=== PATIENT | female | born 1950 | race Caucasian/White ===

== ENCOUNTER 2022-06-12 07:47 | Emergency (ER) | payer MEDICARE ==
[2022-06-12] MEDS ORDERED: Sodium Chloride 0.9% 1000 ML 1,000 ML IV STA ×2 (08:05→09:52)
[2022-06-12] MEDS ORDERED: Reglan 10 MG/2 ML IV ONE (08:05)
[2022-06-12] MEDS ORDERED: Sodium Chloride 0.9% 1000 ML 1,000 ML ONE ×2 (08:09→10:36)
[2022-06-12] MEDS ORDERED: Reglan 10 MG/2 ML ONE (08:09)
--- NOTE | 2022-06-12 08:09 | ERPHSYRPT ---
- History of Present Illness Time Seen by Provider: 06/12/22 07:55 Source: patient Exam Limitations: no limitations Patient Subjective Stated Complaint: Pt states "My gabapentin increased and I woke up vomiting today and it will not stop." Triage Nursing Assessment: PT presnted alert and oriented X 3, skin pale, diaphoretic, warm. PT able to speak in clear full sentences pt dry heaving and vomiting. Physician History: 72 years old female with history of trigeminal neuralgia with recent increase in the dose of Neurontin presented in the ER with sudden onset nausea vomiting almost an hour ago. Patient reports multiple episodes of nonprojectile, nonbilious vomiting without hematemesis. Currently she is dry heaving and have received a dose of Zofran with Benadryl by EMS. Complaining of some abdominal discomfort but no definitive pain. Denies any chest pain palpitations or shortness of breath. No fever or chills reported. Denies any sick contact. Timing/Duration: hour(s) (1), constant, sudden, worse Severity: moderate, severe Modifying Factors: Improves With: nothing Associated Symptoms: nausea, vomiting, weakness, No abdominal pain, No shortness of breath, No heartburn, No cough, No chest pain, No headaches, No loss of appetite, No malaise, No rash, No syncope Allergies/Adverse Reactions: No Known Drug Allergies Allergy (Verified 06/12/22 08:07) Home Medications: Oxcarbazepine 300 mg [Trileptal 300 MG Tablet] 300 mg PO DAILY 06/12/22 [History] Hx Tetanus, Diphtheria Vaccination/Date Given: Yes Hx Influenza Vaccination/Date Given: No Hx Pneumococcal Vaccination/Date Given: No Immunizations Up to Date: Yes Travel Risk - International Travel Have you traveled outside of the country in past 3 weeks: No - Coronavirus Screening Are you exhibiting any of the following symptoms?: Yes Symptoms: Vomiting/Diarrhea - Vaccine Status Have you recieved a Covid-19 vaccination: 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 - Vaccination Dates Date of 2cond Vaccination (if applicable): 2020 - Review of Systems Constitutional: Fatigue, Weakness Eyes: No Symptoms Ears, Nose, & Throat: No Symptoms Respiratory: No Symptoms Cardiac: No Symptoms Abdominal/Gastrointestinal: Nausea, Vomiting Genitourinary Symptoms: No Symptoms Musculoskeletal: No Symptoms Neurological: No Symptoms Psychological: No Symptoms Endocrine: No Symptoms Hematologic/Lymphatic: No Symptoms Immunological/Allergic: No Symptoms - Past Medical History Pertinent Past Medical History: Yes Other Medical History: facial tremors - Past Surgical History Past Surgical History: No - Social History Smoking Status: Former smoker Exposure to second hand smoke: No Drug Use: none Patient Lives Alone: No - Nursing Vital Signs Nursing Vital Signs: Initial Vital Signs Temperature 97.8 F 06/12/22 07:48 Pulse Rate 79 06/12/22 07:48 Respiratory Rate 20 06/12/22 07:48 Blood Pressure 190/90 06/12/22 07:48 O2 Sat by Pulse Oximetry 97 06/12/22 07:48 Pain Scale Pain Intensity 0 - Physical Exam General Appearance: no apparent distress, alert Eye Exam: PERRL/EOMI, eyes nml inspection Ears, Nose, Throat Exam: normal ENT inspection, pharynx normal Neck Exam: normal inspection, non-tender, supple, full range of motion Respiratory Exam: normal breath sounds, lungs clear Cardiovascular Exam: regular rate/rhythm, normal heart sounds Gastrointestinal/Abdomen Exam: soft, normal bowel sounds, No tenderness, No guarding Back Exam: normal inspection, normal range of motion Extremity Exam: normal inspection, normal range of motion Neurologic Exam: alert, oriented x 3, cooperative Skin Exam: normal color SpO2 Interpretation: normal SpO2: 97 O2 Delivery: Room Air Ordered Tests: Active Orders 24 hr Category Date Time Status EKG-ER Only STAT Care 06/12/22 08:05 Active IV Insertion STAT Care 06/12/22 08:05 Active NPO (ED) STAT Care 06/12/22 08:05 Active ABDOMEN AND PELVIS W/0 CONTRAS [CT] Stat Exams 06/12/22 08:05 Completed CBC W DIFF Stat Lab 06/12/22 08:20 Completed CMP Stat Lab 06/12/22 08:20 Completed LIPASE Stat Lab 06/12/22 08:20 Completed Lactic Acid Stat Lab 06/12/22 08:20 Completed Lactic Acid Stat Lab 06/12/22 10:27 Completed TROPONIN Q3H Lab 06/12/22 08:20 Completed TROPONIN Q3H Lab 06/12/22 12:00 Completed TROPONIN Q3H Lab 06/12/22 14:15 Ordered TROPONIN Q3H Lab 06/12/22 17:15 Ordered TROPONIN Q3H Lab 06/12/22 20:15 Ordered UA W/RFX CULTURE Stat Lab 06/12/22 08:40 Completed Medication Summary Discontinued Medications Generic Name Dose Route Start Last Admin Trade Name Deya PRN Reason Stop Dose Admin Sodium Chloride 1,000 mls @ 999 mls/hr 06/12/22 08:05 06/12/22 09:14 Sodium Chloride 0.9% 1000 Ml IV 06/12/22 09:05 Infused .Q1H1M STA Infusion Sodium Chloride Confirm 06/12/22 08:09 Sodium Chloride 0.9% 1000 Ml Administered 06/12/22 08:10 Dose 1,000 mls @ ud .ROUTE .STK-MED ONE Sodium Chloride 1,000 mls @ 999 mls/hr 06/12/22 09:52 06/12/22 11:43 Sodium Chloride 0.9% 1000 Ml IV 06/12/22 10:52 Infused .Q1H1M STA Infusion Sodium Chloride Confirm 06/12/22 10:36 Sodium Chloride 0.9% 1000 Ml Administered 06/12/22 10:37 Dose 1,000 mls @ ud .ROUTE .STK-MED ONE Metoclopramide HCl 10 mg 06/12/22 08:05 06/12/22 08:10 Metoclopramide Hcl 10 Mg/2 Ml Vial IV 06/12/22 08:06 10 mg STAT ONE Administration Metoclopramide HCl Confirm 06/12/22 08:09 Metoclopramide Hcl 10 Mg/2 Ml Vial Administered 06/12/22 08:10 Dose 10 mg .ROUTE .STK-MED ONE Lab/Rad Data: Laboratory Result Diagrams 06/12/22 08:20 06/12/22 08:20 Laboratory Results 06/12/22 06/12/22 06/12/22 Range/Units 12:00 10:27 09:22 WBC (4.0-10.5) x10^3/uL RBC (4.1-5.4) x10^6/uL Hgb (12.0-16.0) g/dL Hct (35-47) % MCV (78-100) fL MCH (26-32) pg MCHC (32-36) g/dL RDW (11.5-14.0) % Plt Count (150-450) x10^3/uL MPV (7.5-11.0) fL Gran % (36.0-66.0) % Immature Gran % (Auto) (0.00-0.4) % Nucleat RBC Rel Count (0.00-0.1) % Eos # (Auto) (0-0.5) x10^3/uL Immature Gran # (Auto) (0.00-0.03) x10^3u/L Absolute Lymphs (auto) (1.0-4.6) x10^3/uL Absolute Monos (auto) (0.0-1.3) x10^3/uL Absolute Nucleated RBC (0.00-0.01) x10^3u/L Lymphocytes % (24.0-44.0) % Monocytes % (0.0-12.0) % Eosinophils % (0.00-5.0) % Basophils % (0.0-0.4) % Absolute Granulocytes (1.4-6.9) x10^3/uL Basophils # (0-0.4) x10^3/uL Sodium (137-145) mmol/L Potassium (3.5-5.1) mmol/L Chloride (98-107) mmol/L Carbon Dioxide (22-30) mmol/L Anion Gap (5-15) MEQ/L BUN (7-17) mg/dL Creatinine (0.52-1.04) mg/dL Estimated GFR ML/MIN Glucose (74-106) mg/dL Lactic Acid 1.1 (0.4-2.0) Calcium (8.4-10.2) mg/dL Total Bilirubin (0.2-1.3) mg/dL AST (14-36) U/L ALT (0-35) U/L Alkaline Phosphatase (38-126) U/L Troponin I 0.018 (0.000-0.034) ng/mL Serum Total Protein (6.3-8.2) g/dL Albumin (3.5-5.0) g/dL Lipase (23-300) U/L Urinalys Dipstick Clnc Urine Color (YELLOW) Urine Appearance (CLEAR) Urine pH (5-6) Ur Specific [place] (1.005-1.025) POC Urine Protein Conf (Negative) Urine Ketones (NEGATIVE) Urine Nitrite (NEGATIVE) Urine Bilirubin (NEGATIVE) Urine Urobilinogen (0-1) mg/dL Urine Leukocytes (NEGATIVE) Urine WBC (Auto) (0-5) /HPF Urine RBC (Auto) (0-2) /HPF U Epithel Cells (Auto) (FEW) /HPF Urine Bacteria (Auto) (NEGATIVE) /HPF Urine RBC (0-5) Narendra/ul Unidentified Crystals (NEGATIVE) /HPF Urine Mucus (Auto) (NEGATIVE) /HPF Ur Culture Indicated? Urine Glucose (NEGATIVE) mg/dL Influenza Type A Ag NEGATIVE (NEGATIVE) Influenza Type B Ag NEGATIVE (NEGATIVE) RSV (PCR) NEGATIVE (Negative) SARS-CoV-2 (PCR) NEGATIVE (NEGATIVE) 06/12/22 06/12/22 06/12/22 Range/Units 08:40 08:20 08:20 WBC (4.0-10.5) x10^3/uL RBC (4.1-5.4) x10^6/uL Hgb (12.0-16.0) g/dL Hct (35-47) % MCV (78-100) fL MCH (26-32) pg MCHC (32-36) g/dL RDW (11.5-14.0) % Plt Count (150-450) x10^3/uL MPV (7.5-11.0) fL Gran % (36.0-66.0) % Immature Gran % (Auto) (0.00-0.4) % Nucleat RBC Rel Count (0.00-0.1) % Eos # (Auto) (0-0.5) x10^3/uL Immature Gran # (Auto) (0.00-0.03) x10^3u/L Absolute Lymphs (auto) (1.0-4.6) x10^3/uL Absolute Monos (auto) (0.0-1.3) x10^3/uL Absolute Nucleated RBC (0.00-0.01) x10^3u/L Lymphocytes % (24.0-44.0) % Monocytes % (0.0-12.0) % Eosinophils % (0.00-5.0) % Basophils % (0.0-0.4) % Absolute Granulocytes (1.4-6.9) x10^3/uL Basophils # (0-0.4) x10^3/uL Sodium 143 (137-145) mmol/L Potassium 4.0 (3.5-5.1) mmol/L Chloride 106 (98-107) mmol/L Carbon Dioxide 27 (22-30) mmol/L Anion Gap 14.0 (5-15) MEQ/L BUN 20 H (7-17) mg/dL Creatinine 0.57 (0.52-1.04) mg/dL Estimated GFR > 60.0 ML/MIN Glucose 168 H (74-106) mg/dL Lactic Acid (0.4-2.0) Calcium 9.3 (8.4-10.2) mg/dL Total Bilirubin 0.50 (0.2-1.3) mg/dL AST 25 (14-36) U/L ALT 17 (0-35) U/L Alkaline Phosphatase 87 (38-126) U/L Troponin I < 0.012 (0.000-0.034) ng/mL Serum Total Protein 6.5 (6.3-8.2) g/dL Albumin 4.0 (3.5-5.0) g/dL Lipase 85 (23-300) U/L Urinalys Dipstick Clnc MAIN LAB Urine Color YELLOW (YELLOW) Urine Appearance CLEAR (CLEAR) Urine pH 7.0 (5-6) Ur Specific [place] 1.025 (1.005-1.025) POC Urine Protein Conf NEGATIVE (Negative) Urine Ketones SMALL-15 (NEGATIVE) Urine Nitrite NEGATIVE (NEGATIVE) Urine Bilirubin NEGATIVE (NEGATIVE) Urine Urobilinogen 0.2 (0-1) mg/dL Urine Leukocytes TRACE (NEGATIVE) Urine WBC (Auto) 3-5 (0-5) /HPF Urine RBC (Auto) 0-2 (0-2) /HPF U Epithel Cells (Auto) NONE (FEW) /HPF Urine Bacteria (Auto) NONE (NEGATIVE) /HPF Urine RBC NEGATIVE (0-5) Narendra/ul Unidentified Crystals 2-5 (NEGATIVE) /HPF Urine Mucus (Auto) SLIGHT (NEGATIVE) /HPF Ur Culture Indicated? NO Urine Glucose 100 (NEGATIVE) mg/dL Influenza Type A Ag (NEGATIVE) Influenza Type B Ag (NEGATIVE) RSV (PCR) (Negative) SARS-CoV-2 (PCR) (NEGATIVE) 06/12/22 06/12/22 Range/Units 08:20 08:20 WBC 9.3 (4.0-10.5) x10^3/uL RBC 4.55 (4.1-5.4) x10^6/uL Hgb 14.1 (12.0-16.0) g/dL Hct 41.6 (35-47) % MCV 91.4 (78-100) fL MCH 31.0 (26-32) pg MCHC 33.9 (32-36) g/dL RDW 11.9 (11.5-14.0) % Plt Count 230 (150-450) x10^3/uL MPV 9.9 (7.5-11.0) fL Gran % 70.4 H (36.0-66.0) % Immature Gran % (Auto) 0.3 (0.00-0.4) % Nucleat RBC Rel Count 0.0 (0.00-0.1) % Eos # (Auto) 0.30 (0-0.5) x10^3/uL Immature Gran # (Auto) 0.03 (0.00-0.03) x10^3u/L Absolute Lymphs (auto) 1.61 (1.0-4.6) x10^3/uL Absolute Monos (auto) 0.74 (0.0-1.3) x10^3/uL Absolute Nucleated RBC 0.00 (0.00-0.01) x10^3u/L Lymphocytes % 17.3 L (24.0-44.0) % Monocytes % 7.9 (0.0-12.0) % Eosinophils % 3.2 (0.00-5.0) % Basophils % 0.9 (0.0-0.4) % Absolute Granulocytes 6.57 (1.4-6.9) x10^3/uL Basophils # 0.08 (0-0.4) x10^3/uL Sodium (137-145) mmol/L Potassium (3.5-5.1) mmol/L Chloride (98-107) mmol/L Carbon Dioxide (22-30) mmol/L Anion Gap (5-15) MEQ/L BUN (7-17) mg/dL Creatinine (0.52-1.04) mg/dL Estimated GFR ML/MIN Glucose (74-106) mg/dL Lactic Acid 4.1 H (0.4-2.0) Calcium (8.4-10.2) mg/dL Total Bilirubin (0.2-1.3) mg/dL AST (14-36) U/L ALT (0-35) U/L Alkaline Phosphatase (38-126) U/L Troponin I (0.000-0.034) ng/mL Serum Total Protein (6.3-8.2) g/dL Albumin (3.5-5.0) g/dL Lipase (23-300) U/L Urinalys Dipstick Clnc Urine Color (YELLOW) Urine Appearance (CLEAR) Urine pH (5-6) Ur Specific [place] (1.005-1.025) POC Urine Protein Conf (Negative) Urine Ketones (NEGATIVE) Urine Nitrite (NEGATIVE) Urine Bilirubin (NEGATIVE) Urine Urobilinogen (0-1) mg/dL Urine Leukocytes (NEGATIVE) Urine WBC (Auto) (0-5) /HPF Urine RBC (Auto) (0-2) /HPF U Epithel Cells (Auto) (FEW) /HPF Urine Bacteria (Auto) (NEGATIVE) /HPF Urine RBC (0-5) Narendra/ul Unidentified Crystals (NEGATIVE) /HPF Urine Mucus (Auto) (NEGATIVE) /HPF Ur Culture Indicated? Urine Glucose (NEGATIVE) mg/dL Influenza Type A Ag (NEGATIVE) Influenza Type B Ag (NEGATIVE) RSV (PCR) (Negative) SARS-CoV-2 (PCR) (NEGATIVE) - Progress Progress: improved Progress Note: 06/12/22 12:40 Is given symptomatic treatment, on reevaluation she is feeling better. No nausea or vomiting on reevaluation. No peritoneal signs on repeated evaluation. She had a white count of 13, grossly unremarkable chemistries, elevated lactate of 4.1 without any obvious focus of infection. CT abdomen pelvis neg ative for any acute finding, CT also did not reveal constipation, recommended stool softener. Repeat lactate after fluids is 1.1 which I believe is secondary to dehydration the lactate was elevated We will give her Zofran to go home, increase hydration and outpatient follow-up discussed signs symptoms of worsening needing return to ER which she seems understanding Counseled pt/family regarding: lab results, diagnosis, need for follow-up, rad results - Departure Departure Disposition: Home Clinical Impression: Nausea & vomiting, Dehydration, Constipation Condition: Stable Critical Care Time: No Referrals: Eva Herman [NON-STAFF PHY W/O PRIVILEGES] - Follow up/PCP as directed (1-2 days for reevaluation) Instructions: Nausea and Vomiting, Adult (DC) Additional Instructions: Drink plenty of fluids to keep yourself well-hydrated. Take Zofran as needed for nausea vomiting take MiraLAX/stool softener regularly Follow-up with your primary care for reevaluation. Return to ER for intractable nausea vomiting/abdominal pain/fever chills etc. Prescriptions: Ondansetron ODT 4 MG [Zofran Odt 4 mg] 1 ea PO QIDPRN PRN #7 tablet PRN Reason: n/v
[2022-06-12 08:32] LABS: Absolute Neutrophil Ct (ANC) 6.57 x10^3/uL (1.4-6.9); Basophil (Absolute #) 0.08 x10^3/uL (0-0.4); Eosinophil % 3.2 % (0.00-5.0); Hematocrit 41.6 % (35-47); Hemoglobin 14.1 g/dL (12.0-16.0); Lymphocyte (Absolute #) 1.61 x10^3/uL (1.0-4.6); Lymphocytes % 17.3 % (24.0-44.0); Mean Cell Volume 91.4 fL (78-100); Mean Corpuscular Hgb Concent. 33.9 g/dL (32-36); Mean Platelet Volume 9.9 fL (7.5-11.0); Monocyte (Absolute #) 0.74 x10^3/uL (0.0-1.3); Monocytes % 7.9 % (0.0-12.0); Neutrophil % 70.4 % (36.0-66.0); Platelet Count 230 x10^3/uL (150-450); Red Blood Count 4.55 x10^6/uL (4.1-5.4); Red Cell Distribution Width 11.9 % (11.5-14.0); White Blood Count 9.3 x10^3/uL (4.0-10.5)
[2022-06-12 08:53] LABS: ALKALINE PHOSPHATASE 87 U/L (38-126); BLOOD UREA NITROGEN 20 mg/dL (7-17); CHLORIDE 106 mmol/L (98-107); Calcium 9.3 mg/dL (8.4-10.2); Carbon Dioxide 27 mmol/L (22-30); Creatinine 1 0.57 mg/dL (0.52-1.04); EST GLOMERULAR FILTRATION RATE > 60.0 ML/MIN; Glucose 168 mg/dL (74-106); LIPASE 85 U/L (23-300); SGOT/AST 25 U/L (14-36); SGPT/ALT 17 U/L (0-35); SODIUM 143 mmol/L (137-145); Total Protein 6.5 g/dL (6.3-8.2)
--- NOTE | 2022-06-12 09:11 | XRAY ---
Indication: Vomiting. Multiple contiguous axial images obtained through the abdomen and pelvis without contrast. Comparison: None Lung bases demonstrate mild dependent atelectasis. No infiltrate or effusion. Heart not enlarged. Small hiatal hernia. Noncontrasted stomach and bowel loops appear nonobstructed with normal appendix. There is mild/moderate diffuse scattered colonic fecal debris greatest in the ascending and transverse colon. 2.4 cm right mid renal cyst. No free fluid/air. Remaining liver, gallbladder, pancreas, spleen, adrenal glands, kidneys, ureters, bladder, and aorta are unremarkable for noncontrast exam. Mild scattered aortic calcifications without AAA. Osseous structures intact with mild lower lumbar degenerative changes. No ventral or inguinal hernias. Impression: 1. Small hiatal hernia, diffuse fecal stasis, right renal cyst, arteriosclerotic disease, and lumbar degenerative spondylosis. 2. Remaining CT abdomen/pelvis without contrast exam is negative.
[2022-06-12 09:16] LABS: Mucus SLIGHT /HPF (NEGATIVE); RBC 0-2 /HPF (0-2)
[2022-06-12 09:17] LABS: Appearance CLEAR (CLEAR); Bilirubin NEGATIVE (NEGATIVE); Glucose 100 mg/dL (NEGATIVE); Ketones SMALL-15 (NEGATIVE); Specific Gravity 1.025 (1.005-1.025)
[2022-06-12 09:18] LABS: Dipstick done @ ? MAIN LAB; Nitrite NEGATIVE (NEGATIVE); Protein,Urine Dip NEGATIVE (Negative); RBC NEGATIVE Ery/ul (0-5); Urobilinogen 0.2 mg/dL (0-1)
[2022-06-12 09:19] LABS: Urine Cultured Indicated? NO
[2022-06-12 10:01] LABS: INFLUENZA A NEGATIVE (NEGATIVE); INFLUENZA B NEGATIVE (NEGATIVE); RESPIRATORY SYNCTIAL VIRUS NEGATIVE (Negative)
[2022-06-12 10:02] LABS: SARS-CoV-2 Xpert Express NEGATIVE (NEGATIVE)
[2022-06-12 12:13] VITALS: BP 144/93; PULSE 70
[2022-06-12 12:45] VITALS: O2SAT 97
== END 2022-06-12 13:10 | disposition home or self-care (01) ==
LOC: ED 07:47
DX: R11.2 Nausea with vomiting, unspecified (principal); E86.0 Dehydration; K59.00 Constipation, unspecified; Z79.899 Other long term (current) drug therapy; Z20.828 Contact with and (suspected) exposure to other viral communicable diseases
CPT/HCPCS: 0241U; 36000; 36415; 74176; 80053; 81015; 83605; 83690; 84484; 85025; 93005; 96360; 96361; 96374; 99284

== ENCOUNTER 2022-06-15 12:14 | Observation (INO) | payer MEDICARE ==
[2022-06-15] MEDS ORDERED: Reglan 10 MG/2 ML IV ONE (12:56)
[2022-06-15] MEDS ORDERED: Zofran 4 MG/2 ML VIAL IV ONE (13:00)
[2022-06-15] MEDS ORDERED: Sodium Chloride 0.9% 1000 ML 1,000 ML IV SCH (13:00)
[2022-06-15] MEDS ORDERED: VALIUM 10 MG/2 ML SYRINGE IV ONE (13:01)
[2022-06-15] MEDS ORDERED: BENADRYL 50 MG/ML IV ONE (13:03)
[2022-06-15] MEDS ORDERED: Zofran 4 MG/2 ML VIAL ONE (13:06)
[2022-06-15] MEDS ORDERED: VALIUM 10 MG/2 ML SYRINGE ONE (13:07)
[2022-06-15] MEDS ORDERED: Reglan 10 MG/2 ML ONE (13:07)
[2022-06-15 13:51] LABS: Absolute Neutrophil Ct (ANC) 9.56 x10^3/uL (1.4-6.9); Basophil (Absolute #) 0.05 x10^3/uL (0-0.4); Eosinophil % 0.5 % (0.00-5.0); Eosinophil (Absolute #) 0.06 x10^3/uL (0-0.5); Hemoglobin 15.2 g/dL (12.0-16.0); Lymphocyte (Absolute #) 0.47 x10^3/uL (1.0-4.6); Lymphocytes % 4.3 % (24.0-44.0); Mean Cell Volume 90.5 fL (78-100); Mean Corpuscular Hemoglobin 30.6 pg (26-32); Mean Corpuscular Hgb Concent. 33.8 g/dL (32-36); Mean Platelet Volume 9.8 fL (7.5-11.0); Monocyte (Absolute #) 0.73 x10^3/uL (0.0-1.3); Monocytes % 6.7 % (0.0-12.0); Neutrophil % 87.6 % (36.0-66.0); Platelet Count 218 x10^3/uL (150-450); Red Blood Count 4.97 x10^6/uL (4.1-5.4); Red Cell Distribution Width 11.8 % (11.5-14.0); White Blood Count 10.9 x10^3/uL (4.0-10.5)
[2022-06-15 14:03] LABS: ALBUMIN 4.2 g/dL (3.5-5.0); ALKALINE PHOSPHATASE 98 U/L (38-126); AMYLASE 64 U/L (30-110); ANION GAP 12.1 MEQ/L (5-15); BLOOD UREA NITROGEN 13 mg/dL (7-17); CHLORIDE 101 mmol/L (98-107); Carbon Dioxide 28 mmol/L (22-30); Creatinine 1 0.64 mg/dL (0.52-1.04); EST GLOMERULAR FILTRATION RATE > 60.0 ML/MIN; Glucose 130 mg/dL (74-106); LIPASE 59 U/L (23-300); Potassium 4.6 mmol/L (3.5-5.1); SGOT/AST 32 U/L (14-36); SGPT/ALT 26 U/L (0-35); SODIUM 136 mmol/L (137-145); Total Protein 7.1 g/dL (6.3-8.2)
[2022-06-15] MEDS ORDERED: Sodium Chloride 0.9% 1000 ML 1,000 ML IV STA (14:44)
[2022-06-15 14:50] LABS: Slide Review 1 YES
--- NOTE | 2022-06-15 15:16 | ERPHSYRPT ---
- History of Present Illness Time Seen by Provider: 06/15/22 12:35 Source: patient Exam Limitations: no limitations Patient Subjective Stated Complaint: Pt c/o of weakness and vomiting Triage Nursing Assessment: Pt brought to the ER by EMS, hypertensive, weak, very lethargic, was in this ER 3 days ago for the same issues, vomiting, weak, too weak to answer questions and when she does she speaks to quietly to hear, bounding pulses, pale dry skin, no difficulties breathing Physician History: Patient is a 72-year-old white female who was seen in the ER on for nausea vomiting sweating and unremitting intractable vomiting. She also at that time complained of weakness she had no abdominal pain she had no shortness of breath no heartburn no cough no chest pain no headache no loss of appetite no malaise her work-up included a CT scan which was essentially negative her most impressive finding was a lactic acid of 4.1 she was given 3 L of fluid at that point the lactic acid was normal and she was discharged home she did fairly well until today when she had a recurrence of her persistent intractable vomiting. Upon questioning the patient's says that she is okay as long as she still but when she moves or turns her head she vomits. With dizziness Timing/Duration: day(s) (4) Severity: moderate Modifying Factors: Improves With: movement Associated Symptoms: nausea, vomiting Allergies/Adverse Reactions: No Known Drug Allergies Allergy (Verified 06/12/22 08:07) Home Medications: Oxcarbazepine 300 mg [Trileptal 300 MG Tablet] 300 mg PO DAILY 06/12/22 [History] Hx Tetanus, Diphtheria Vaccination/Date Given: Yes Hx Influenza Vaccination/Date Given: No Hx Pneumococcal Vaccination/Date Given: No Travel Risk - International Travel Have you traveled outside of the country in past 3 weeks: No - Coronavirus Screening Are you exhibiting any of the following symptoms?: No Close contact with a COVID-19 positive Pt in past 14-21 Days: No - Vaccine Status Have you recieved a Covid-19 vaccination: Yes 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 - Vaccination Dates Date of 2cond Vaccination (if applicable): 2020 - Review of Systems Constitutional: No Fever, No Chills Eyes: No Symptoms Ears, Nose, & Throat: No Symptoms Respiratory: No Cough, No Dyspnea Cardiac: No Chest Pain, No Edema, No Syncope Abdominal/Gastrointestinal: Nausea, Vomiting, No Abdominal Pain, No Diarrhea Genitourinary Symptoms: No Dysuria Musculoskeletal: No Back Pain, No Neck Pain Skin: No Rash Neurological: Vertigo, No Dizziness, No Focal Weakness, No Sensory Changes Psychological: No Symptoms Endocrine: No Symptoms All Other Systems: Reviewed and Negative - Past Medical History Pertinent Past Medical History: Yes Other Medical History: facial tremors - Past Surgical History Past Surgical History: No - Social History Smoking Status: Former smoker Exposure to second hand smoke: No Drug Use: none Patient Lives Alone: No - Nursing Vital Signs Nursing Vital Signs: Initial Vital Signs Temperature 96.7 F 06/15/22 12:21 Pulse Rate 82 06/15/22 12:21 Respiratory Rate 16 06/15/22 12:21 Blood Pressure 212/99 06/15/22 12:21 O2 Sat by Pulse Oximetry 95 06/15/22 12:21 Pain Scale Pain Intensity 0 - Physical Exam General Appearance: moderate distress, alert Eye Exam: PERRL/EOMI, eyes nml inspection Ears, Nose, Throat Exam: normal ENT inspection, TMs normal, pharynx normal, moist mucous membranes Neck Exam: normal inspection, non-tender, supple, full range of motion Respiratory Exam: normal breath sounds, lungs clear, No respiratory distress Cardiovascular Exam: regular rate/rhythm, normal heart sounds, normal peripheral pulses Gastrointestinal/Abdomen Exam: soft, normal bowel sounds, No tenderness, No mass Back Exam: normal inspection, normal range of motion, No CVA tenderness, No vertebral tenderness Extremity Exam: normal inspection, normal range of motion, pelvis stable Neurologic Exam: alert, oriented x 3, cooperative, normal mood/affect, nml cerebellar function, nml station & gait, sensation nml, No motor deficits Skin Exam: normal color, warm, dry, No rash Lymphatic Exam: No adenopathy SpO2 Interpretation: normal SpO2: 94 O2 Delivery: Room Air - Course Nursing assessment & vital signs reviewed: Yes EKG Interpreted by Me: RATE (82), Sinus Rhythm, NORMAL AXIS, Non-specific ST Changes, Other (Prolonged QT interval and nonspecific ST-T wave changes) - CT Exams Head CT Interpretation: Tele-radiologist Report Ordered Tests: Active Orders 24 hr Category Date Time Status EKG-ER Only STAT Care 06/15/22 12:56 Active IV Insertion STAT Care 06/15/22 12:56 Active HEAD WITHOUT CONTRAST [CT] Stat Exams 06/15/22 13:31 Taken AMYLASE Stat Lab 06/15/22 13:45 Completed CBC W DIFF Stat Lab 06/15/22 12:56 Completed CMP Stat Lab 06/15/22 13:45 Completed LIPASE Stat Lab 06/15/22 13:45 Completed Lactic Acid Stat Lab 06/15/22 13:50 Completed TROPONIN Q3H Lab 06/15/22 13:45 Completed TROPONIN Q3H Lab 06/15/22 16:00 Ordered TROPONIN Q3H Lab 06/15/22 19:00 Ordered TROPONIN Q3H Lab 06/15/22 22:00 Ordered TROPONIN Q3H Lab 06/16/22 01:00 Ordered UA W/RFX CULTURE Stat Lab 06/15/22 Ordered Medication Summary Generic Name Dose Route Start Last Admin Trade Name Deya PRN Reason Stop Dose Admin Sodium Chloride 1,000 mls @ 100 mls/hr 06/15/22 13:00 06/15/22 13:11 Sodium Chloride 0.9% 1000 Ml IV 07/15/22 12:59 100 mls/hr .Q10H DEBBIE Administration Sodium Chloride 1,000 mls @ 999 mls/hr 06/15/22 14:44 Sodium Chloride 0.9% 1000 Ml IV 06/15/22 15:44 .Q1H1M STA Discontinued Medications Generic Name Dose Route Start Last Admin Trade Name Deya PRN Reason Stop Dose Admin Diazepam 2.5 mg 06/15/22 13:01 06/15/22 13:16 Diazepam 10 Mg/2 Ml Disp.Syringe IV 06/15/22 13:02 2.5 mg STAT ONE Administration Diazepam Confirm 06/15/22 13:07 Diazepam 10 Mg/2 Ml Disp.Syringe Administered 06/15/22 13:08 Dose 10 mg .ROUTE .STK-MED ONE Diphenhydramine HCl 25 mg 06/15/22 13:03 06/15/22 13:42 Diphenhydramine Hcl 50 Mg/Ml Vial IV 06/15/22 13:04 Not Given STAT ONE Metoclopramide HCl 10 mg 06/15/22 12:56 06/15/22 13:18 Metoclopramide Hcl 10 Mg/2 Ml Vial IV 06/15/22 12:57 10 mg STAT ONE Administration Metoclopramide HCl Confirm 06/15/22 13:07 Metoclopramide Hcl 10 Mg/2 Ml Vial Administered 06/15/22 13:08 Dose 10 mg .ROUTE .STK-[facility] ONE Ondansetron HCl 4 mg 06/15/22 13:00 06/15/22 13:13 Ondansetron Hcl 4 Mg/2 Ml Vial IV 06/15/22 13:01 4 mg STAT ONE Administration Ondansetron HCl Confirm 06/15/22 13:06 Ondansetron Hcl 4 Mg/2 Ml Vial Administered 06/15/22 13:07 Dose 4 mg .ROUTE .[facility] ONE Lab/Rad Data: Laboratory Result Diagrams 06/15/22 12:56 06/15/22 13:45 Laboratory Results 06/15/22 06/15/22 06/15/22 Range/Units 13:50 13:45 13:45 WBC (4.0-10.5) x10^3/uL RBC (4.1-5.4) x10^6/uL Hgb (12.0-16.0) g/dL Hct (35-47) % MCV (78-100) fL MCH (26-32) pg MCHC (32-36) g/dL RDW (11.5-14.0) % Plt Count (150-450) x10^3/uL MPV (7.5-11.0) fL Gran % (36.0-66.0) % Immature Gran % (Auto) (0.00-0.4) % Nucleat RBC Rel Count (0.00-0.1) % Eos # (Auto) (0-0.5) x10^3/uL Immature Gran # (Auto) (0.00-0.03) x10^3u/L Absolute Lymphs (auto) (1.0-4.6) x10^3/uL Absolute Monos (auto) (0.0-1.3) x10^3/uL Absolute Nucleated RBC (0.00-0.01) x10^3u/L Lymphocytes % (24.0-44.0) % Monocytes % (0.0-12.0) % Eosinophils % (0.00-5.0) % Basophils % (0.0-0.4) % Absolute Granulocytes (1.4-6.9) x10^3/uL Basophils # (0-0.4) x10^3/uL Sodium 136 L (137-145) mmol/L Potassium 4.6 (3.5-5.1) mmol/L Chloride 101 (98-107) mmol/L Carbon Dioxide 28 (22-30) mmol/L Anion Gap 12.1 (5-15) MEQ/L BUN 13 (7-17) mg/dL Creatinine 0.64 (0.52-1.04) mg/dL Estimated GFR > 60.0 ML/MIN Glucose 130 H (74-106) mg/dL Lactic Acid 1.2 (0.4-2.0) Calcium 9.0 (8.4-10.2) mg/dL Total Bilirubin 0.50 (0.2-1.3) mg/dL AST 32 (14-36) U/L ALT 26 (0-35) U/L Alkaline Phosphatase 98 (38-126) U/L Troponin I < 0.012 (0.000-0.034) ng/mL Serum Total Protein 7.1 (6.3-8.2) g/dL Albumin 4.2 (3.5-5.0) g/dL Amylase 64 (30-110) U/L Lipase 59 (23-300) U/L Slides for Path Review 06/15/22 Range/Units 12:56 WBC 10.9 H (4.0-10.5) x10^3/uL RBC 4.97 (4.1-5.4) x10^6/uL Hgb 15.2 (12.0-16.0) g/dL Hct 45.0 (35-47) % MCV 90.5 (78-100) fL MCH 30.6 (26-32) pg MCHC 33.8 (32-36) g/dL RDW 11.8 (11.5-14.0) % Plt Count 218 (150-450) x10^3/uL MPV 9.8 (7.5-11.0) fL Gran % 87.6 H (36.0-66.0) % Immature Gran % (Auto) 0.4 (0.00-0.4) % Nucleat RBC Rel Count 0.0 (0.00-0.1) % Eos # (Auto) 0.06 (0-0.5) x10^3/uL Immature Gran # (Auto) 0.04 H (0.00-0.03) x10^3u/L Absolute Lymphs (auto) 0.47 L (1.0-4.6) x10^3/uL Absolute Monos (auto) 0.73 (0.0-1.3) x10^3/uL Absolute Nucleated RBC 0.00 (0.00-0.01) x10^3u/L Lymphocytes % 4.3 L (24.0-44.0) % Monocytes % 6.7 (0.0-12.0) % Eosinophils % 0.5 (0.00-5.0) % Basophils % 0.5 (0.0-0.4) % Absolute Granulocytes 9.56 H (1.4-6.9) x10^3/uL Basophils # 0.05 (0-0.4) x10^3/uL Sodium (137-145) mmol/L Potassium (3.5-5.1) mmol/L Chloride (98-107) mmol/L Carbon Dioxide (22-30) mmol/L Anion Gap (5-15) MEQ/L BUN (7-17) mg/dL Creatinine (0.52-1.04) mg/dL Estimated GFR ML/MIN Glucose (74-106) mg/dL Lactic Acid (0.4-2.0) Calcium (8.4-10.2) mg/dL Total Bilirubin (0.2-1.3) mg/dL AST (14-36) U/L ALT (0-35) U/L Alkaline Phosphatase (38-126) U/L Troponin I (0.000-0.034) ng/mL Serum Total Protein (6.3-8.2) g/dL Albumin (3.5-5.0) g/dL Amylase (30-110) U/L Lipase (23-300) U/L Slides for Path Review YES - Progress Progress: improved Progress Note: 06/15/22 15:16 The patient is dehydrated no urine output for 3 hours we will treat her for labyrinthitis and vertigo. Discussed with : Chrissie Will see patient in: hospital (observation) - Departure Departure Disposition: Observation Clinical Impression: Labyrinthitis, Dehydration, Nausea & vomiting Condition: Fair Critical Care Time: No Referrals: PAOLA ORO MD [Primary Care Provider] - Follow up/PCP as directed
[2022-06-15] MEDS ORDERED: ANTIVERT 25 MG PO PRN (15:20)
[2022-06-15 15:34] LABS: INFLUENZA A NEGATIVE (NEGATIVE); INFLUENZA B NEGATIVE (NEGATIVE); RESPIRATORY SYNCTIAL VIRUS NEGATIVE (Negative); SARS-CoV-2 Xpert Express NEGATIVE (NEGATIVE)
[2022-06-15] MEDS: Reglan 10 MG/2 ML IV SCH ×2 (16:25→21:14)
[2022-06-15] MEDS: Sodium Chloride 0.9% 1000 ML 1,000 ML IV SCH ×2 (16:25→21:16)
[2022-06-15] MEDS: VALIUM 10 MG/2 ML SYRINGE IV SCH (16:41)
[2022-06-15] MEDS ORDERED: ZOFRAN ODT 4 MG PO PRN (18:13)
[2022-06-15 19:58] LABS: Epithelial Cells RARE /HPF (FEW); WBC 0-2 /HPF (0-5)
[2022-06-15 19:59] LABS: Appearance CLEAR (CLEAR); Bilirubin NEGATIVE (NEGATIVE); Dipstick done @ ? MAIN LAB; Glucose NEGATIVE (NEGATIVE); Ketones MODERATE-40 (NEGATIVE); Nitrite NEGATIVE (NEGATIVE); Protein,Urine Dip NEGATIVE (Negative); RBC NEGATIVE Ery/ul (0-5); Specific Gravity 1.015 (1.005-1.025); Urobilinogen 0.2 mg/dL (0-1)
[2022-06-15 20:00] LABS: Bacteria NONE SEEN /HPF (NEGATIVE); Urine Cultured Indicated? NO
--- NOTE | 2022-06-15 21:13 | XRAY ---
Indication: Vertigo. General body weakness and dehydration. Multiple contiguous axial images obtained through the head without contrast. Comparison: None Age-appropriate global atrophy and mild periventricular degenerative micro-ischemia bilaterally. No acute intracranial hemorrhage, abnormal extra-axial fluid collection, or mass effect. Fourth ventricles midline without hydrocephalus. Bony calvarium intact. Visualized paranasal sinuses and mastoid air cells are clear. Impression: Nonacute senile brain. Comment: Preliminary interpretation made by [facility]. No critical discrepancy.
[2022-06-15] MEDS: ANTIVERT 25 MG PO SCH (21:14)
[2022-06-16] MEDS: ANTIVERT 25 MG PO SCH ×7 (00:08→23:34)
[2022-06-16] MEDS ORDERED: Sodium Chloride 0.9% 1000 ML 1,000 ML ONE (03:33)
[2022-06-16] MEDS ORDERED: Reglan 10 MG/2 ML ONE (03:33)
[2022-06-16] MEDS: Sodium Chloride 0.9% 1000 ML 1,000 ML IV SCH (03:37)
[2022-06-16] MEDS: Reglan 10 MG/2 ML IV SCH (03:37)
[2022-06-16] MEDS: VALIUM 10 MG/2 ML SYRINGE IV SCH ×3 (03:41→23:34)
[2022-06-16] MEDS ORDERED: Zofran 4 MG/2 ML VIAL IV PRN (08:10)
[2022-06-16] MEDS ORDERED: Reglan 10 MG PO PRN (08:11)
[2022-06-16] MEDS: Trileptal 300 MG Tablet PO SCH (09:00)
[2022-06-16] MEDS ORDERED: Reglan 10 MG/2 ML IV SCH (12:00)
[2022-06-17] MEDS: ANTIVERT 25 MG PO SCH ×3 (04:10→12:16)
[2022-06-17] MEDS: Trileptal 300 MG Tablet PO SCH (07:13)
[2022-06-17] MEDS: VALIUM 10 MG/2 ML SYRINGE IV SCH (09:30)
--- NOTE | 2022-06-17 10:57 | SSS ---
DISCHARGE DIAGNOSES: 1) VERTIGO. 2) VOMITING. 3) DEHYDRATION. HISTORY: The patient is a 72-year-old white female who has been having problems with vertigo for the past few weeks. She had been bad enough that she began vomiting and went to the emergency room approximately three days prior to the visit on 06/15/2022. She was given fluids and felt better and went home at that time. At this time when she came back again with similar circumstances with vomiting and she was not taking enough fluids, she was dehydrated. She had elevation in her lactic acid once again which came down with fluids. The patient was admitted to the hospital for more aggressive management of the vertigo, vomiting and dehydration. She has an appointment coming up to see a neurologist for the above problems on 06/24/2022. She does not have a primary care provider at our facility. We are therefore are seeing her as a service case. PAST MEDICAL/SURGICAL HISTORY: Otherwise significant for some facial tremors. HOME MEDICATIONS: She takes Trileptal 300 mg daily. ALLERGIES: NKDA. PHYSICAL EXAMINATION: Her vital signs on admission showed temperature 96.7F, pulse 82, respiratory rate 16 and blood pressure was noted to be 212/99. O2 saturation 95%. HEENT: Normocephalic, atraumatic. Pupils equal round reactive to light. Extraocular movements intact. There appeared to be some mild nystagmus according to the emergency room doctor when he initially evaluated her. I have not noted that on my evaluation. The patient's oropharynx was somewhat dry. NECK: Supple without lymphadenopathy, thyromegaly or JVD. CHEST: Clear to auscultation. HEART: Regular rate and rhythm without murmurs, rubs or gallops heard. ABDOMEN: Soft. No palpable masses. EXTREMITIES: Without cyanosis, clubbing or edema. NEUROLOGIC: The patient has no focal deficits noted. She is alert and oriented x3. LAB DATA AND TESTS: The patient's laboratory studies revealed hemoglobin 15.2, white count 10.9, PLT count 218,000. Electrolytes were essentially normal. BUN 13, creatinine 0.64. Her troponin was less than 0.012. Amylase and lipase were normal. She had CT scan of the head which showed nonacute senile brain otherwise no intracranial abnormality was noted. Her telemetry had shown her to be in sinus rhythm since her stay. HOSPITAL COURSE: The patient was given IV fluids and managed with the use of the Antivert every 4 hours. She was getting Reglan as well IV as well as Zofran. The patient was much better by 06/16/2022 in the morning. We continued to observe her for the next 24 hours discontinuing the Reglan and keeping her on the Antivert and PRN Zofran. The patient by 06/17/2022 was felt to be ready for discharge home. She was instructed to follow up with her doctor within the next week. She was to take the Antivert every 6 hours routinely and to have Zofran on hand for nausea. She is to push fluids particularly water to stay hydrated.
[2022-06-17 11:31] VITALS: BP 135/75; PULSE 66; O2SAT 97
== END 2022-06-17 14:11 | disposition home or self-care (01) ==
LOC: ED 12:14 → MED SURG 16:05
PROVIDERS: ADMIT Family Medicine; ATTEND Family Medicine
DX: R42 Dizziness and giddiness (principal); R11.10 Vomiting, unspecified; E86.0 Dehydration; Z79.899 Other long term (current) drug therapy; Z20.828 Contact with and (suspected) exposure to other viral communicable diseases
CPT/HCPCS: 0241U; 36415; 70450; 80053; 81015; 82150; 83605; 83690; 84484; 85025; 93005; 96360; 96374; 96375; 99285; G0378; J2405; J3360; A9270-GY

== ENCOUNTER 2023-11-25 22:37 | Emergency (ER) | payer MEDICARE ==
--- NOTE | 2023-11-25 22:49 | ERPHSYRPT ---
- History of Present Illness Time Seen by Provider: 11/25/23 22:49 Source: patient, family (Patient's provided additional, independent history specially on the events that had been occurred medically in the last 2 t o 3 days) Exam Limitations: no limitations Physician History: This is a 73-year-old white female patient who has a history of facial tremors and anxiety and presents with 2 to 3-day history of worsening symptoms of cough sore throat and mild shortness of breath. Her spouse has the same symptoms. She was exposed to her grandchild that was RSV positive. Patient denies chest pain. Patient denies abdominal pain. Patient denies nausea vomiting and diarrhea. Patient states that she really only has shortness of breath when she has coughing spells of several episodes of coughing in a row. Timing/Duration: day(s) (2 to 3 days), worse Severity of Dyspnea-Max: mild Severity of Dyspnea-Current: mild Possible Cause: no prior episodes Modifying Factors: Improves With: coughing Associated Symptoms: cough, No chest pain/discomfort, No wheezing, No hemoptysis, No dizziness, No productive cough Allergies/Adverse Reactions: No Known Drug Allergies Allergy (Verified 11/25/23 22:46) Home Medications: Oxcarbazepine 300 mg [Trileptal 300 MG Tablet] 300 mg PO BID 06/12/22 [History] Carbamazepine 200 mg [Tegretol 200 MG] 200 mg PO BID 11/25/23 [History] Duloxetine HCl 30 mg PO BID 11/25/23 [History] Loratadine 10 mg [Claritin 10 mg] 10 mg PO DAILY 11/25/23 [History] Hx Tetanus, Diphtheria Vaccination/Date Given: Yes Hx Influenza Vaccination/Date Given: No Hx Pneumococcal Vaccination/Date Given: No Travel Risk - International Travel Have you traveled outside of the country in past 3 weeks: No - Coronavirus Screening Are you exhibiting any of the following symptoms?: Yes Symptoms: Cough: New Onset, Shortness of Breath - Vaccine Status Have you recieved a Covid-19 vaccination: Yes Licensed Dispensing Optician: Moderna - Vaccination Dates Date of 2cond Vaccination (if applicable): 2020 - Review of Systems Constitutional: No Symptoms Eyes: No Symptoms Ears, Nose, & Throat: No Symptoms Respiratory: Cough, Dyspnea, No Wheezing (Coughing) Cardiac: No Chest Pain Abdominal/Gastrointestinal: No Symptoms Genitourinary Symptoms: No Symptoms Musculoskeletal: No Symptoms Skin: No Symptoms Neurological: No Symptoms Psychological: No Symptoms Endocrine: No Symptoms Hematologic/Lymphatic: No Symptoms Immunological/Allergic: No Symptoms All Other Systems: Reviewed and Negative - Past Medical History Pertinent Past Medical History: Yes Other Medical History: facial tremors - Past Surgical History Past Surgical History: No - Social History Smoking Status: Never smoker Exposure to second hand smoke: No Drug Use: none Patient Lives Alone: No - Nursing Vital Signs Nursing Vital Signs: Initial Vital Signs Pulse Rate 124 H 11/25/23 22:50 Respiratory Rate 24 11/25/23 22:50 Blood Pressure 209/149 11/25/23 22:50 O2 Sat by Pulse Oximetry 100 11/25/23 22:50 Pain Scale Pain Intensity 0 - Physical Exam General Appearance: no apparent distress, alert, anxiety Eye Exam: PERRL/EOMI, eyes nml inspection Ears, Nose, Throat Exam: hearing grossly normal, normal ENT inspection, No normal pharynx Neck Exam: normal inspection, non-tender, full range of motion Respiratory Exam: normal breath sounds, lungs clear, airway intact, No chest tenderness, No respiratory distress Cardiovascular/Chest Exam: normal heart sounds, regular rate/rhythm Abdominal/Gastrointestinal Exam: soft, normal bowel sounds, No tenderness Rectal Exam: not done Extremity Exam: non-tender, normal range of motion, normal inspection, normal capillary refill, no calf tenderness, no pedal edema, pelvis stable Neurologic Exam: alert, oriented x 3, cooperative, remote sensing technician II-XII nml as tested, normal mood/affect, nml cerebellar function, nml station & gait, sensation nml Skin Exam: normal color, warm, dry Lymphatic Exam: No adenopathy SpO2 Interpretation: normal O2 Delivery: Room Air - Course Nursing assessment & vital signs reviewed: Yes Ordered Tests: Active Orders 24 hr Category Date Time Status Informatics Analyst STAT Care 11/25/23 23:11 Active EKG-ER Only STAT Care 11/25/23 23:11 Active IV Insertion STAT Care 11/25/23 23:11 Active Pulse Oximetry (ED) STAT Care 11/25/23 23:11 Active CHEST 1 VIEW (PORTABLE) Stat Exams 11/25/23 23:11 Taken BLOOD CULTURE Stat Lab 11/25/23 00:10 Received CBC W DIFF Stat Lab 11/25/23 23:00 Completed CMP Stat Lab 11/25/23 23:00 Completed MONO SCREEN Stat Lab 11/25/23 23:00 Completed NT PRO BNPII Stat Lab 11/25/23 23:00 Completed UA W/RFX UR CULTURE Stat Lab 11/25/23 23:11 Ordered Medication Summary Generic Name Dose Route Start Last Admin Trade Name Deya PRN Reason Stop Dose Admin Sodium Chloride 1,000 mls @ 100 mls/hr 11/25/23 23:15 Sodium Chloride 0.9% 1000 Ml IV 12/25/23 23:14 .Q10H DEBBIE Discontinued Medications Generic Name Dose Route Start Last Admin Trade Name Ashwinq PRN Reason Stop Dose Admin Hydrocodone Bitart/Acetaminophen 10 ml 11/25/23 23:36 Hydrocodone/Acetaminophen 5 Ml Udcup PO 11/25/23 23:37 STAT STA Methylprednisolone Sodium 0 mg 11/25/23 23:35 Succinate 125 mg/ Sterile IV 11/25/23 23:36 Water 2 ml STAT ONE Lab/Rad Data: Laboratory Result Diagrams 11/25/23 23:00 11/25/23 23:00 Laboratory Results 11/25/23 11/25/23 11/25/23 Range/Units 23:00 23:00 23:00 WBC (4.0-10.5) x10^3/uL RBC (4.1-5.4) x10^6/uL Hgb (12.0-16.0) g/dL Hct (35-47) % MCV (78-100) fL MCH (26-32) pg MCHC (32-36) g/dL RDW (11.5-14.0) % Plt Count (150-450) x10^3/uL MPV (7.5-11.0) fL Gran % (36.0-66.0) % Immature Gran % (Auto) (0.00-0.4) % Nucleat RBC Rel Count (0.00-0.1) % Eos # (Auto) (0-0.5) x10^3/uL Immature Gran # (Auto) (0.00-0.03) x10^3u/L Absolute Lymphs (auto) (1.0-4.6) x10^3/uL Absolute Monos (auto) (0.0-1.3) x10^3/uL Absolute Nucleated RBC (0.00-0.01) x10^3u/L Lymphocytes % (24.0-44.0) % Monocytes % (0.0-12.0) % Eosinophils % (0.00-5.0) % Basophils % (0.0-0.4) % Absolute Granulocytes (1.4-6.9) x10^3/uL Basophils # (0-0.4) x10^3/uL Sodium 133 L (137-145) mmol/L Potassium 4.3 (3.5-5.1) mmol/L Chloride 100 (98-107) mmol/L Carbon Dioxide 24 (22-30) mmol/L Anion Gap 13.6 (5-15) MEQ/L BUN 17 (7-17) mg/dL Creatinine 0.52 (0.52-1.04) mg/dL Estimated GFR 99.3 ML/MIN Glucose 110 H (74-106) mg/dL Calcium 9.8 (8.4-10.2) mg/dL Total Bilirubin 0.70 (0.2-1.3) mg/dL AST 42 H (14-36) U/L ALT 18 (0-35) U/L Alkaline Phosphatase 79 (38-126) U/L NT-Pro-B Natriuret Pep 142 (<300) pg/mL Serum Total Protein 8.2 (6.3-8.2) g/dL Albumin 4.6 (3.5-5.0) g/dL Monoscreen NEGATIVE (NEGATIVE) Influenza Type A Ag (NEGATIVE) Influenza Type B Ag (NEGATIVE) RSV (PCR) (NEGATIVE) SARS-CoV-2 (PCR) (NEGATIVE) 11/25/23 11/25/23 Range/Units 23:00 00:05 WBC 6.4 (4.0-10.5) x10^3/uL RBC 5.10 (4.1-5.4) x10^6/uL Hgb 15.6 (12.0-16.0) g/dL Hct 45.3 (35-47) % MCV 88.8 (78-100) fL MCH 30.6 (26-32) pg MCHC 34.4 (32-36) g/dL RDW 11.5 (11.5-14.0) % Plt Count 224 (150-450) x10^3/uL MPV 9.9 (7.5-11.0) fL Gran % 47.5 (36.0-66.0) % Immature Gran % (Auto) 0.2 (0.00-0.4) % Nucleat RBC Rel Count 0.0 (0.00-0.1) % Eos # (Auto) 0.15 (0-0.5) x10^3/uL Immature Gran # (Auto) 0.01 (0.00-0.03) x10^3u/L Absolute Lymphs (auto) 1.98 (1.0-4.6) x10^3/uL Absolute Monos (auto) 1.16 (0.0-1.3) x10^3/uL Absolute Nucleated RBC 0.00 (0.00-0.01) x10^3u/L Lymphocytes % 30.8 (24.0-44.0) % Monocytes % 18.1 H (0.0-12.0) % Eosinophils % 2.3 (0.00-5.0) % Basophils % 1.1 (0.0-0.4) % Absolute Granulocytes 3.05 (1.4-6.9) x10^3/uL Basophils # 0.07 (0-0.4) x10^3/uL Sodium (137-145) mmol/L Potassium (3.5-5.1) mmol/L Chloride (98-107) mmol/L Carbon Dioxide (22-30) mmol/L Anion Gap (5-15) MEQ/L BUN (7-17) mg/dL Creatinine (0.52-1.04) mg/dL Estimated GFR ML/MIN Glucose (74-106) mg/dL Calcium (8.4-10.2) mg/dL Total Bilirubin (0.2-1.3) mg/dL AST (14-36) U/L ALT (0-35) U/L Alkaline Phosphatase (38-126) U/L NT-Pro-B Natriuret Pep (<300) pg/mL Serum Total Protein (6.3-8.2) g/dL Albumin (3.5-5.0) g/dL Monoscreen (NEGATIVE) Influenza Type A Ag NEGATIVE (NEGATIVE) Influenza Type B Ag NEGATIVE (NEGATIVE) RSV (PCR) POSITIVE (NEGATIVE) SARS-CoV-2 (PCR) NEGATIVE (NEGATIVE) - Progress Progress: improved, re-examined Air Movement: good Progress Note: 11/26/23 00:06 This patient's medical issue is 1 of moderate complexity. The level complex in the workup performed is based on review of the patient's past medical history, review the patient's medication list, review the patient's drug allergy list, history present illness and physical findings on examination. The workup in this patient includes placement of intravenous line, twelve-lead EKG, troponin level, BNP level, viral swabs, monotest, chest x-ray. We will provide the patient with hydrocodone/acetaminophen level elixir for cough and Solu-Medrol intravenously. I will also have respiratory therapy evaluate this patient. 11/26/23 01:05 I reviewed and interpreted the patient's laboratory data. Of significance, the patient has RSV bronchitis. Chest x-ray was interpreted by me. There is a question of right lung base atelectasis versus infiltrate. Blood Culture(s) Obtained: Yes Antibiotics given: Yes Counseled pt/family regarding: lab results, diagnosis, need for follow-up, rad results Medical Desision Making - Independent Historian Additional History obtained from: Spouse - Diagnostic Testing Diagnostic test were ordered, analyzed, and reviewed by me: Yes Radiological Interpretation: Interpreted by me - Risk of complications The pt has a mod risk of morbidity or mortality based on: Need for prescription drug management - Departure Departure Disposition: Home Clinical Impression: RSV bronchitis, Upper respiratory infection Condition: Stable Critical Care Time: No Referrals: PAOLA ORO MD [Primary Care Provider] - Follow up/PCP as directed Additional Instructions: Drink plenty of clear liquids. Avoid exposure to any kind of smoke. Take your medications as prescribed. Follow-up with your primary care provider later today, by phone, to make arranges for follow-up appointment the next 5 to 7 days. Prescriptions: Prednisone 10 mg [Deltasone 10 mg] 10 mg PO TID #12 tablet Hydrocodone/Acetaminophen [Hydrocodone-Acetamn 7.5-325/15] 10 ml PO Q8H PRN #120 ml MDD 30 ml PRN Reason: Cough Azithromycin 250 mg [Zithromax 250 MG TABLET] 250 mg PO ZPACK #6 tablet
[2023-11-25 23:03] VITALS: BP 209/149; PULSE 124; RESP 24; O2SAT 100
[2023-11-25] MEDS ORDERED: Sodium Chloride 0.9% 1000 ML 1,000 ML IV SCH (23:15)
[2023-11-25 23:16] LABS: Absolute Neutrophil Ct (ANC) 3.05 x10^3/uL (1.4-6.9); BASOPHIL % 1.1 % (0.0-0.4); Basophil (Absolute #) 0.07 x10^3/uL (0-0.4); Eosinophil % 2.3 % (0.00-5.0); Eosinophil (Absolute #) 0.15 x10^3/uL (0-0.5); Hematocrit 45.3 % (35-47); Hemoglobin 15.6 g/dL (12.0-16.0); IMMATURE GRAN # 0.01 x10^3u/L (0.00-0.03); IMMATURE GRAN % 0.2 % (0.00-0.4); Lymphocyte (Absolute #) 1.98 x10^3/uL (1.0-4.6); Lymphocytes % 30.8 % (24.0-44.0); Mean Cell Volume 88.8 fL (78-100); Mean Corpuscular Hemoglobin 30.6 pg (26-32); Mean Corpuscular Hgb Concent. 34.4 g/dL (32-36); Mean Platelet Volume 9.9 fL (7.5-11.0); Monocyte (Absolute #) 1.16 x10^3/uL (0.0-1.3); Monocytes % 18.1 % (0.0-12.0); Neutrophil % 47.5 % (36.0-66.0); Platelet Count 224 x10^3/uL (150-450); Red Cell Distribution Width 11.5 % (11.5-14.0); White Blood Count 6.4 x10^3/uL (4.0-10.5)
[2023-11-25 23:22] LABS: ALBUMIN 4.6 g/dL (3.5-5.0); ANION GAP 13.6 MEQ/L (5-15); BILIRUBIN,TOTAL 0.7 mg/dL (0.2-1.3); Calcium 9.8 mg/dL (8.4-10.2); Creatinine 1 0.52 mg/dL (0.52-1.04); EST GLOMERULAR FILTRATION RATE 99.3 ML/MIN; Potassium 4.3 mmol/L (3.5-5.1); Total Protein 8.2 g/dL (6.3-8.2)
[2023-11-25] MEDS ORDERED: solu-MEDROL 125 MG, Sterile H2O 10 ml 2 ML IV ONE ×2 (23:35)
[2023-11-25] MEDS ORDERED: HYDROCODONE-ACETAMIN 2.5-108/5 ML SOLUTION PO STA (23:36)
[2023-11-26 00:55] LABS: INFLUENZA A NEGATIVE (NEGATIVE); INFLUENZA B NEGATIVE (NEGATIVE); SARS-CoV-2 Xpert Express NEGATIVE (NEGATIVE)
[2023-11-26 00:57] LABS: RESPIRATORY SYNCTIAL VIRUS POSITIVE (NEGATIVE)
[2023-11-26] MEDS ORDERED: ROCEPHIN 1 Gm-D5w 50 ml Bag** 1 G/50 ML IVPB IV STA (01:06)
[2023-11-26] MEDS ORDERED: ROCEPHIN 1 Gm-D5w 50 ml Bag** 1 G/50 ML IVPB IV ONE (01:10)
[2023-11-26] MEDS ORDERED: Sodium Chloride 0.9% 1000 ML 1,000 ML ONE (01:10)
[2023-11-26] MEDS ORDERED: Sterile H2O 10 ml IJ ONE (01:10)
[2023-11-26] MEDS ORDERED: solu-MEDROL ONE (01:10)
--- NOTE | 2023-11-26 08:55 | XRAY ---
Indication: Cough. Comparison: None Portable chest slightly rotated without focal infiltrate, consolidation, or large effusion. Heart not enlarged. Bony thorax intact with osteopenia and mild degenerative changes.
== END 2023-11-26 02:50 | disposition home or self-care (01) ==
LOC: ED 22:37
DX: J20.5 Acute bronchitis due to respiratory syncytial virus (principal); R05.1 Acute cough; J02.9 Acute pharyngitis, unspecified; R06.02 Shortness of breath; Z79.52 Long term (current) use of systemic steroids; Z79.891 Long term (current) use of opiate analgesic; Z79.899 Other long term (current) drug therapy
CPT/HCPCS: 0241U; 36000; 36415; 71045; 80053; 83880; 85025; 86308; 87040; 93041; 94760; 96374; 99284; J0696; J2930; A9270-GY

== ENCOUNTER 2024-04-23 10:15 | Emergency (ER) | payer MEDICARE ==
[2024-04-23 10:25] VITALS: TEMP 97.8
[2024-04-23] MEDS ORDERED: Zofran 4 MG/2 ML VIAL ONE (10:37)
[2024-04-23] MEDS ORDERED: Sodium Chloride 0.9% 1000 ML 1,000 ML ONE (10:37)
[2024-04-23] MEDS: Sodium Chloride 0.9% 1000 ML 1,000 ML IV STA (10:38)
[2024-04-23] MEDS: Zofran 4 MG/2 ML VIAL IV ONE (10:38)
[2024-04-23 10:45] LABS: Absolute Neutrophil Ct (ANC) 2.86 x10^3/uL (1.4-6.9); Basophil (Absolute #) 0.05 x10^3/uL (0-0.4); Eosinophil (Absolute #) 0.05 x10^3/uL (0-0.5); Hematocrit 42.2 % (35-47); Hemoglobin 14.9 g/dL (12.0-16.0); IMMATURE GRAN # 0.01 x10^3u/L (0.00-0.03); IMMATURE GRAN % 0.2 % (0.00-0.4); Lymphocytes % 30.7 % (24.0-44.0); Mean Cell Volume 87.2 fL (78-100); Mean Corpuscular Hemoglobin 30.8 pg (26-32); Mean Corpuscular Hgb Concent. 35.3 g/dL (32-36); Mean Platelet Volume 9.8 fL (7.5-11.0); Monocyte (Absolute #) 0.64 x10^3/uL (0.0-1.3); Monocytes % 12.3 % (0.0-12.0); Neutrophil % 54.8 % (36.0-66.0); Platelet Count 282 x10^3/uL (150-450); Red Blood Count 4.84 x10^6/uL (4.1-5.4); Red Cell Distribution Width 11.5 % (11.5-14.0); White Blood Count 5.2 x10^3/uL (4.0-10.5)
[2024-04-23 11:10] LABS: ALBUMIN 4.9 g/dL (3.5-5.0); ANION GAP 13.5 MEQ/L (5-15); BILIRUBIN,TOTAL 0.7 mg/dL (0.2-1.3); Calcium 10.3 mg/dL (8.4-10.2); Creatinine 1 0.59 mg/dL (0.52-1.04); EST GLOMERULAR FILTRATION RATE 96.3 ML/MIN; Potassium 4.4 mmol/L (3.5-5.1)
[2024-04-23] MEDS ORDERED: SUBLIMAZE 100 MCG/2 ML ONE (11:20)
[2024-04-23] MEDS: SUBLIMAZE 100 MCG/2 ML IV ONE (11:22)
--- NOTE | 2024-04-23 11:55 | XRAY ---
CLINICAL HISTORY: pain COMPARISON: None TECHNIQUE: A CT scan of the abdomen was performed without IV contrast, Coronal and sagittal reconstructive images were also obtained. One of the following dose reduction techniques was utilized for this exam: Automated exposure control, adjustment of the mA and/or kV according to patient size, use of iterative reconstruction FINDINGS: Lung bases are unremarkable. Abdomen: The liver is normal in size without focal parenchymal abnormality. The intrahepatic biliary radicals and the bile ducts are normal. The gallbladder is normal. No pericholecystic fluid collection or radio-dense calculi in the gall bladder. The spleen, pancreas, adrenal glands are unremarkable. Right parapelvic cysts is seen measuring up to 2.6 cm in dimension. Otherwise, the kidneys are unremarkable. They are normal in size and shape. No calculi or hydronephrosis is seen. The ascending colon, the transverse colon, the descending colon, visualized small bowel loops are unremarkable. There is no evidence of significant enlargement of the mesenteric or retroperitoneal lymph nodes. The osseous structures in the lower rib cage and lumbar spine show no abnormality. The appendix is not identified. There is no prominent perirectal inflammation. Pelvis: The urinary bladder is unremarkable. The rectosigmoid colon is unremarkable. The pelvic vasculature is unremarkable. No evidence of pelvic lymphadenopathy. IMPRESSION: 1. Right renal cyst. 2. No other significant abnormality is noted. Electronically Signed by: Jesus Muniz MD. (04/23/2024 11:51:04 EDT)
[2024-04-23] MEDS ORDERED: PROTONIX 40 MG IV IV ONE (13:13)
[2024-04-23] MEDS: PROTONIX 40 MG IV IV ONE (13:20)
--- NOTE | 2024-04-23 13:26 | ERPHSYRPT ---
- History of Present Illness Time Seen by Provider: 04/23/24 11:02 Historian: patient, family Exam Limitations: no limitations Patient Subjective Stated Complaint: Pt states "I have been throught this before. I have trigeminal neuralgia and I need to be able to keep my medicines down. I have been vomiting for two days." Triage Nursing Assessment: PT presented tearful alert and oriented X 3, skin pwd. Pt ambulates with a slow gait. PT resting on bed comfortably. Physician History: 73-year-old female with history of trigeminal neuralgia, GERD with esophagitis presented in the ER with complaint of 3 days history of upper abdominal pain with nausea dry heaving and had couple of episodes of nonprojectile, nonbilious vomiting earlier today. Reports moderate intensity dull aching to sharp pain and because of repeated dry heaving having some sort in the upper abdomen muscle as well. No diarrhea or constipation reported. No fever or chills reported. Reports pain feels different than her routine acid reflux. No history of gallbladder issues in the past. Allergies/Adverse Reactions: No Known Drug Allergies Allergy (Verified 11/25/23 22:46) Home Medications: Oxcarbazepine 300 mg [Trileptal 300 MG Tablet] 300 mg PO BID 06/12/22 [History] Duloxetine HCl 30 mg PO BID 11/25/23 [History] Hx Tetanus, Diphtheria Vaccination/Date Given: Yes Hx Influenza Vaccination/Date Given: Yes Hx Pneumococcal Vaccination/Date Given: Yes Immunizations Up to Date: No Travel Risk - International Travel Have you traveled outside of the country in past 3 weeks: No - Emerging Infectious Disease Are you exhibiting symptoms associated with any current EIDs: Yes Symptoms: Abdominal Pain - Review of Systems Constitutional: No Symptoms Eyes: No Symptoms Ears, Nose, & Throat: No Symptoms Respiratory: No Symptoms Cardiac: No Symptoms Abdominal/Gastrointestinal: Abdominal Pain, Nausea, Vomiting Genitourinary Symptoms: No Symptoms Musculoskeletal: No Symptoms Skin: No Symptoms Neurological: No Symptoms Endocrine: No Symptoms Hematologic/Lymphatic: No Symptoms - Past Medical History Pertinent Past Medical History: Yes Neurological History: Migraines, Other ENT History: No Pertinent History Cardiac History: No Pertinent History Respiratory History: Pneumonia, Sleep Apnea Endocrine Medical History: No Pertinent History Musculoskeletal History: No Pertinent History GI Medical History: No Pertinent History History: No Pertinent History Psycho-Social History: No Pertinent History Female Reproductive Disorders: No Pertinent History Other Medical History: facial tremors - Past Surgical History Past Surgical History: Yes Neuro Surgical History: No Pertinent History Cardiac: No Pertinent History Respiratory: No Pertinent History Gastrointestinal: No Pertinent History Genitourinary: No Pertinent History Musculoskeletal: Other Female Surgical History: No Pertinent History Other Surgical History: bone spur removed from posterior neck - Social History Smoking Status: Former smoker How long have you smoked: 20 years Exposure to second hand smoke: No Drug Use: none Patient Lives Alone: No - Social Determinants of Health Will the patient participate in the screening: Declined to provide - Nursing Vital Signs Nursing Vital Signs: Initial Vital Signs Temperature 97.8 F 04/23/24 10:18 Pulse Rate 79 04/23/24 10:18 Respiratory Rate 20 04/23/24 10:18 Blood Pressure 205/118 04/23/24 10:18 O2 Sat by Pulse Oximetry 99 04/23/24 10:18 Pain Scale Pain Intensity 4 - Physical Exam General Appearance: no apparent distress, alert Eye Exam: PERRL/EOMI Ears, Nose, Throat Exam: normal ENT inspection Neck Exam: normal inspection, supple, full range of motion Respiratory Exam: normal breath sounds, lungs clear Cardiovascular Exam: regular rate/rhythm, normal heart sounds Gastrointestinal/Abdomen Exam: soft, normal bowel sounds, tenderness (Epigastric/right upper quadrant) Extremity Exam: normal inspection, normal range of motion Neurologic Exam: alert, oriented x 3, cooperative Skin Exam: normal color SpO2 Interpretation: normal SpO2: 96 O2 Delivery: Room Air Ordered Tests: Active Orders 24 hr Category Date Time Status ABDOMEN AND PELVIS W/0 CONTRAS [CT] Stat Exams 04/23/24 10:30 Completed CBC W DIFF Stat Lab 04/23/24 10:30 Completed CMP Stat Lab 04/23/24 10:30 Completed LIPASE Stat Lab 04/23/24 10:30 Completed TROPONIN Q3H Lab 04/23/24 10:30 Completed TROPONIN Q3H Lab 04/23/24 15:15 Ordered TROPONIN Q3H Lab 04/23/24 18:15 Ordered TROPONIN Q3H Lab 04/23/24 21:15 Ordered UA W/RFX UR CULTURE Stat Lab 04/23/24 13:31 Completed Medication Summary Discontinued Medications Generic Name Dose Route Start Last Admin Trade Name Freq PRN Reason Stop Dose Admin Fentanyl Citrate 50 mcg 04/23/24 11:03 04/23/24 11:22 Fentanyl Citrate 100 Mcg/2 Ml* Vial IV 04/23/24 11:04 50 mcg STAT ONE Administration Fentanyl Citrate Confirm 04/23/24 11:20 Fentanyl Citrate 100 Mcg/2 Ml* Vial Administered 04/23/24 11:21 Dose 100 mcg .ROUTE .STK-MED ONE Sodium Chloride 1,000 mls @ 999 mls/hr 04/23/24 10:33 04/23/24 11:59 Sodium Chloride 0.9% 1000 Ml IV 04/23/24 11:33 Infused .Q1H1M STA Infusion Sodium Chloride Confirm 04/23/24 10:37 Sodium Chloride 0.9% 1000 Ml Administered 04/23/24 10:38 Dose 1,000 mls @ ud .ROUTE .STK-MED ONE Ondansetron HCl 4 mg 04/23/24 10:33 04/23/24 10:38 Ondansetron Hcl 4 Mg/2 Ml Vial IV 04/23/24 10:34 4 mg STAT ONE Administration Ondansetron HCl Confirm 04/23/24 10:37 Ondansetron Hcl 4 Mg/2 Ml Vial Administered 04/23/24 10:38 Dose 4 mg .ROUTE .STK-MED ONE Pantoprazole Sodium 40 mg 04/23/24 13:10 04/23/24 13:20 Pantoprazole 40 Mg Vial IV 04/23/24 13:11 40 mg STAT ONE Administration Pantoprazole Sodium Confirm 04/23/24 13:13 Pantoprazole 40 Mg Vial Administered 04/23/24 13:14 Dose 40 mg IV .STK-MED ONE Lab/Rad Data: Laboratory Result Diagrams 04/23/24 10:30 04/23/24 10:30 Laboratory Results 04/23/24 04/23/24 04/23/24 Range/Units 13:31 10:30 10:30 WBC (4.0-10.5) x10^3/uL RBC (4.1-5.4) x10^6/uL Hgb (12.0-16.0) g/dL Hct (35-47) % MCV (78-100) fL MCH (26-32) pg MCHC (32-36) g/dL RDW (11.5-14.0) % Plt Count (150-450) x10^3/uL MPV (7.5-11.0) fL Gran % (36.0-66.0) % Immature Gran % (Auto) (0.00-0.4) % Nucleat RBC Rel Count (0.00-0.1) % Eos # (Auto) (0-0.5) x10^3/uL Immature Gran # (Auto) (0.00-0.03) x10^3u/L Absolute Lymphs (auto) (1.0-4.6) x10^3/uL Absolute Monos (auto) (0.0-1.3) x10^3/uL Absolute Nucleated RBC (0.00-0.01) x10^3u/L Lymphocytes % (24.0-44.0) % Monocytes % (0.0-12.0) % Eosinophils % (0.00-5.0) % Basophils % (0.0-0.4) % Absolute Granulocytes (1.4-6.9) x10^3/uL Basophils # (0-0.4) x10^3/uL Sodium 140 (135-145) mmol/L Potassium 4.4 (3.5-5.1) mmol/L Chloride 105 (98-107) mmol/L Carbon Dioxide 26 (22-30) mmol/L Anion Gap 13.5 (5-15) MEQ/L BUN 14 (7-17) mg/dL Creatinine 0.59 (0.52-1.04) mg/dL Estimated GFR 96.3 ML/MIN Glucose 111 H (74-106) mg/dL Calcium 10.3 H (8.4-10.2) mg/dL Total Bilirubin 0.70 (0.2-1.3) mg/dL AST 29 (14-36) U/L ALT 18 (0-35) U/L Alkaline Phosphatase 119 (38-126) U/L Troponin I < 0.012 (0.000-0.033) ng/mL Serum Total Protein 8.0 (6.3-8.2) g/dL Albumin 4.9 (3.5-5.0) g/dL Lipase 91 (23-300) U/L Urine Color Yellow (Yellow) Urine Appearance Clear (Clear) Urine pH 8.0 (4.6-8.0) Ur Specific [place] 1.010 (1.005-1.030) Urine Protein Negative (Negative) Urine Glucose (UA) Negative (Negative) mg/dL Urine Ketones 40 A (Negative) Urine Blood Negative (Negative) Urine Nitrite Negative (Negative) Urine Bilirubin Negative (Negative) Urine Urobilinogen 1.0 A (0.2) mg/dL Ur Leukocyte Esterase Trace A (Negative) U Hyaline Cast (Auto) NONE SEEN (0-2) /LPF Urine Microscopic RBC 0-2 (0-5) /HPF Urine Microscopic WBC 0-2 (0-5) /HPF Ur Epithelial Cells None Seen (None Seen) /HPF Urine Bacteria None Seen (None Seen) /HPF Urine Culture Reflexed NO (NO) 04/23/24 Range/Units 10:30 WBC 5.2 (4.0-10.5) x10^3/uL RBC 4.84 (4.1-5.4) x10^6/uL Hgb 14.9 (12.0-16.0) g/dL Hct 42.2 (35-47) % MCV 87.2 (78-100) fL MCH 30.8 (26-32) pg MCHC 35.3 (32-36) g/dL RDW 11.5 (11.5-14.0) % Plt Count 282 (150-450) x10^3/uL MPV 9.8 (7.5-11.0) fL Gran % 54.8 (36.0-66.0) % Immature Gran % (Auto) 0.2 (0.00-0.4) % Nucleat RBC Rel Count 0.0 (0.00-0.1) % Eos # (Auto) 0.05 (0-0.5) x10^3/uL Immature Gran # (Auto) 0.01 (0.00-0.03) x10^3u/L Absolute Lymphs (auto) 1.60 (1.0-4.6) x10^3/uL Absolute Monos (auto) 0.64 (0.0-1.3) x10^3/uL Absolute Nucleated RBC 0.00 (0.00-0.01) x10^3u/L Lymphocytes % 30.7 (24.0-44.0) % Monocytes % 12.3 H (0.0-12.0) % Eosinophils % 1.0 (0.00-5.0) % Basophils % 1.0 (0.0-0.4) % Absolute Granulocytes 2.86 (1.4-6.9) x10^3/uL Basophils # 0.05 (0-0.4) x10^3/uL Sodium (135-145) mmol/L Potassium (3.5-5.1) mmol/L Chloride (98-107) mmol/L Carbon Dioxide (22-30) mmol/L Anion Gap (5-15) MEQ/L BUN (7-17) mg/dL Creatinine (0.52-1.04) mg/dL Estimated GFR ML/MIN Glucose (74-106) mg/dL Calcium (8.4-10.2) mg/dL Total Bilirubin (0.2-1.3) mg/dL AST (14-36) U/L ALT (0-35) U/L Alkaline Phosphatase (38-126) U/L Troponin I (0.000-0.033) ng/mL Serum Total Protein (6.3-8.2) g/dL Albumin (3.5-5.0) g/dL Lipase (23-300) U/L Urine Color (Yellow) Urine Appearance (Clear) Urine pH (4.6-8.0) Ur Specific [place] (1.005-1.030) Urine Protein (Negative) Urine Glucose (UA) (Negative) mg/dL Urine Ketones (Negative) Urine Blood (Negative) Urine Nitrite (Negative) Urine Bilirubin (Negative) Urine Urobilinogen (0.2) mg/dL Ur Leukocyte Esterase (Negative) U Hyaline Cast (Auto) (0-2) /LPF Urine Microscopic RBC (0-5) /HPF Urine Microscopic WBC (0-5) /HPF Ur Epithelial Cells (None Seen) /HPF Urine Bacteria (None Seen) /HPF Urine Culture Reflexed (NO) - Progress Progress: improved, re-examined Progress Note: 04/23/24 14:13 73-year-old is evaluated in the ER for upper abdominal pain off and on with nausea dry heaving and vomiting for the last few days. Patient is given symptomatic treatment on arrival with fluids, Zofran and fentanyl, on reevaluation she is feeling much improved. No peritoneal signs on repeated eval's. Patient has normal white count, fairly unremarkable chemistries, no UTI, trace ketones in urine. Negative troponins. No chest pain. CT abdomen pelvis showed a small renal cyst but no other acute intra-abdominal pelvic findings like cholecystitis/pancreatitis/obstruction perforation. Patient does have history of acid reflux and migraines and takes Excedrin Migraine. I have given her Protonix IV and she is feeling better on reevaluation. She is complaining of more soreness in the anterior abdominal wall from repeated dry h eaving. I would give her Carafate to go home and recommended continue with Nexium which she is on as it seems like patient might have some element of gastritis. I do not think patient needs any further workup in the emergency room and recommended outpatient follow-up. Discussed signs symptoms of worsening needing return to ER which she seems understanding. Counseled pt/family regarding: lab results, diagnosis, need for follow-up, rad results Medical Desision Making - Diagnostic Testing Diagnostic test were ordered, analyzed, and reviewed by me: Yes Radiological Interpretation: Reviewed by me, Teleradiologist Report - Risk of complications The pt has a mod risk of morbidity or mortality based on: Need for prescription drug management - Departure Departure Disposition: Home Clinical Impression: Upper abdominal pain, Gastritis, Nausea & vomiting Condition: Stable Critical Care Time: No Referrals: PAOLA ORO MD [Primary Care Provider] - Follow up with PCP 1 day Instructions: Acid Reflux, Adult and Adoles[facility] ED Additional Instructions: Take Tylenol as needed for pain, take Zofran as needed for nausea and vomiting. Drink plenty of fluids to keep yourself well-hydrated. Continue with Nexium. Follow-up with primary care for reevaluation. Return to ER for intractable pain/vomiting/fever chills or inability to keep fluids or if develop fever chills. Prescriptions: Sucralfate 1 gm [Carafate 1 GM] 1 g PO ACHS #20 tablet
[2024-04-23 13:44] LABS: Appearance Clear (Clear); Bacteria None Seen /HPF (None Seen); Bilirubin Negative (Negative); Blood Negative (Negative); Epithelial Cells None Seen /HPF (None Seen); Glucose, Urine Negative (Negative); Hyaline Casts NONE SEEN /LPF (0-2); Ketones 40 (Negative); Leukocyte Esterase Trace (Negative); Nitrite Negative (Negative); Protein,Urine Dip Negative (Negative); RBC 0-2 /HPF (0-5); WBC 0-2 /HPF (0-5)
[2024-04-23 13:56] LABS: ADD URINE CULTURE? NO (NO)
[2024-04-23 14:09] VITALS: BP 157/79; PULSE 71; RESP 17
[2024-04-23 14:18] VITALS: O2SAT 96
== END 2024-04-23 14:27 | disposition home or self-care (01) ==
LOC: ED 10:15
DX: K29.70 Gastritis, unspecified, without bleeding (principal); R11.2 Nausea with vomiting, unspecified; R10.10 Upper abdominal pain, unspecified; Z79.899 Other long term (current) drug therapy
CPT/HCPCS: 36000; 36415; 74176; 80053; 81001; 83690; 84484; 85025; 96374; 96375; 99284; J2405; J3010

== ENCOUNTER 2025-08-17 08:20 | Observation (INO) | payer MEDICARE ==
--- NOTE | 2025-08-17 08:31 | ERPHSYRPT ---
- History of Present Illness Time Seen by Provider: 08/17/25 08:26 Historian: patient Exam Limitations: no limitations Physician History: This is a 75-year-old white female patient who arrives by private vehicle with a complaint of sharp epigastric pain that began midday yesterday and has worsened this morning. Patient has had no prior abdominal surgeries. Patient has never had this type of pain before. Patient did take an acids this morning without benefit or relief of her symptoms. Last week, patient was diagnosed with bronchitis. Patient denies fever. Patient denies chest pain. Patient denies shortness of breath. Patient's last bowel movement was this morning and it was normal for her. Timing/Duration: yesterday Quality: sharpness Abdominal Pain Onset Location: epigastric Pain Radiation: no radiation Severity of Pain-Max: moderate Severity of Pain-Current: moderate Modifying Factors: Improves With: nothing (Patient did try an acids but it did not relieve her pain) Associated Symptoms: nausea, No chest pain, No fever/chills, No shortness of breath, No vomiting Previous symptoms: no prior history, no recent treatment Allergies/Adverse Reactions: No Known Drug Allergies Allergy (Verified 08/17/25 08:41) Home Medications: Benzonatate 100 mg PO TID PRN 08/17/25 [History] Cefdinir 300 mg [Omnicef 300 mg] 300 mg PO Q12H 08/17/25 [History] Polyethylene Glycol 3350 [Miralax] 17 gm PO DAILY 08/17/25 [History] Hx Tetanus, Diphtheria Vaccination/Date Given: Yes Hx Influenza Vaccination/Date Given: Yes Hx Pneumococcal Vaccination/Date Given: Yes Travel Risk - International Travel Have you traveled outside of the country in past 3 weeks: No - Emerging Infectious Disease Are you exhibiting symptoms associated with any current EIDs: Yes Symptoms: Abdominal Pain - Review of Systems Constitutional: No Symptoms Eyes: No Symptoms Ears, Nose, & Throat: No Symptoms Respiratory: No Symptoms Abdominal/Gastrointestinal: Abdominal Pain (Epigastric pain) Genitourinary Symptoms: No Symptoms Musculoskeletal: No Symptoms Skin: No Symptoms Neurological: No Symptoms Psychological: No Symptoms Endocrine: No Symptoms Hematologic/Lymphatic: No Symptoms Immunological/Allergic: No Symptoms All Other Systems: Reviewed and Negative - Past Medical History Pertinent Past Medical History: Yes Neurological History: Migraines, Other ENT History: No Pertinent History Cardiac History: No Pertinent History Respiratory History: Pneumonia, Sleep Apnea Endocrine Medical History: No Pertinent History Musculoskeletal History: No Pertinent History GI Medical History: No Pertinent History History: No Pertinent History Psycho-Social History: No Pertinent History Female Reproductive Disorders: No Pertinent History Other Medical History: facial tremors - Past Surgical History Past Surgical History: Yes Neuro Surgical History: No Pertinent History Cardiac: No Pertinent History Respiratory: No Pertinent History Gastrointestinal: No Pertinent History Genitourinary: No Pertinent History Musculoskeletal: Other Female Surgical History: No Pertinent History Other Surgical History: bone spur removed from posterior neck - Social History Smoking Status: Former smoker How long have you smoked: 20 years Exposure to second hand smoke: No Drug Use: none Patient Lives Alone: No - Social Determinants of Health Will the patient participate in the screening: Declined to provide - Nursing Vital Signs Nursing Vital Signs: Initial Vital Signs Temperature 98.5 F 08/17/25 08:29 Pulse Rate 86 08/17/25 08:29 Respiratory Rate 20 08/17/25 08:29 Blood Pressure 203/121 08/17/25 08:29 O2 Sat by Pulse Oximetry 99 08/17/25 08:29 Pain Scale Pain Intensity 0 - Physical Exam General Appearance: mild distress, alert, anxiety Eye Exam: PERRL/EOMI, eyes nml inspection Ears, Nose, Throat Exam: normal ENT inspection, moist mucous membranes Neck Exam: normal inspection, non-tender, supple, full range of motion Respiratory Exam: normal breath sounds, lungs clear, airway intact, No chest tenderness, No respiratory distress Cardiovascular Exam: regular rate/rhythm, normal heart sounds, normal peripheral pulses Gastrointestinal/Abdomen Exam: soft, normal bowel sounds, tenderness (Epigastrium to palpation), guarding, No rebound (Epigastrium to palpation) Pelvic Exam: not done Rectal Exam: not done Back Exam: normal inspection, normal range of motion, No CVA tenderness, No vertebral tenderness Extremity Exam: normal inspection, normal range of motion, pelvis stable Neurologic Exam: alert, oriented x 3, cooperative, technical sales specialist II-XII nml as tested, nml cerebellar function, nml station & gait, sensation nml Skin Exam: normal color, warm, dry Lymphatic Exam: No adenopathy SpO2 Interpretation: normal O2 Delivery: Room Air - Course Nursing assessment & vital signs reviewed: Yes Ordered Tests: Active Orders 24 hr Category Date Time Status IV Insertion STAT Care 08/17/25 08:45 Active ABDOMEN AND PELVIS W/0 CONTRAS [CT] Stat Exams 08/17/25 08:45 Completed AMYLASE Stat Lab 08/17/25 08:48 Completed CBC W DIFF Stat Lab 08/17/25 08:48 Completed CMP Stat Lab 08/17/25 08:48 Completed LIPASE Stat Lab 08/17/25 08:48 Completed UA W/RFX UR CULTURE Stat Lab 08/17/25 10:37 Completed Medication Summary Discontinued Medications Generic Name Dose Route Start Last Admin Trade Name Deya PRN Reason Stop Dose Admin Hydromorphone HCl 1 mg 08/17/25 08:45 08/17/25 08:58 Hydromorphone 1 Mg/1ml Inj IV 08/17/25 08:46 1 mg STAT ONE Administration Hydromorphone HCl Confirm 08/17/25 08:50 Hydromorphone 1 Mg/1ml Inj Administered 08/17/25 08:51 Dose 1 mg .ROUTE .STK-MED ONE Sodium Chloride 1,000 mls @ 999 mls/hr 08/17/25 08:45 08/17/25 10:14 Sodium Chloride 0.9% 1000 Ml IV 08/17/25 09:45 Infused .Q1H1M STA Infusion Sodium Chloride Confirm 08/17/25 08:50 Sodium Chloride 0.9% 1000 Ml Administered 08/17/25 08:51 Dose 1,000 mls @ ud .ROUTE .STK-MED ONE Labetalol HCl 10 mg 08/17/25 10:43 08/17/25 10:50 Labetalol Hcl 20 Mg/4 Ml Disp.Syringe IV 08/17/25 10:44 10 mg STAT ONE Administration Labetalol HCl Confirm 08/17/25 10:46 Labetalol Hcl 20 Mg/4 Ml Disp.Syringe Administered 08/17/25 10:47 Dose 20 mg IV .STK-MED ONE Pantoprazole Sodium 40 mg 08/17/25 08:45 08/17/25 09:00 Pantoprazole 40 Mg Vial IV 08/17/25 08:46 40 mg STAT ONE Administration Pantoprazole Sodium Confirm 08/17/25 08:50 Pantoprazole 40 Mg Vial Administered 08/17/25 08:51 Dose 40 mg IV .STK-MED ONE Prochlorperazine Edisylate 5 mg 08/17/25 08:45 08/17/25 09:02 Prochlorperazine Edisylate 10 Mg/2 Ml Vial IV 08/17/25 08:46 5 mg STAT ONE Administration Prochlorperazine Edisylate Confirm 08/17/25 08:50 Prochlorperazine Edisylate 10 Mg/2 Ml Vial Administered 08/17/25 08:51 Dose 10 mg .ROUTE .STK-MED ONE Lab/Rad Data: Laboratory Result Diagrams 08/17/25 08:48 08/17/25 08:48 Laboratory Results 08/17/25 08/17/25 08/17/25 Range/Units 10:37 08:48 08:48 WBC 11.5 H (3.98-10.04) x10^3/uL RBC 5.35 H (3.93-5.22) x10^6/uL Hgb 16.2 H (11.2-15.7) g/dL Hct 45.9 H (34.1-44.9) % MCV 85.8 (79.4-94.8) fL MCH 30.3 (25.6-32.2) pg MCHC 35.3 (32.2-35.5) g/dL RDW 11.7 (11.7-14.4) % Plt Count 270 (182-369) x10^3/uL MPV 10.5 (9.4-12.3) fL Gran % 76.9 H (34.0-71.1) % Immature Gran % (Auto) 0.3 (0.001-0.429) % Nucleat RBC Rel Count 0.0 (0.00-0.2) % Eos # (Auto) 0.10 (0.04-0.36) x10^3/uL Immature Gran # (Auto) 0.04 H (0.001-0.031) x10^3u/L Absolute Lymphs (auto) 1.60 (1.18-3.74) x10^3/uL Absolute Monos (auto) 0.86 (0.24-0.86) x10^3/uL Absolute Nucleated RBC 0.00 (0.00-0.012) x10^3u/L Lymphocytes % 13.9 L (19.3-51.7) % Monocytes % 7.5 (4.7-12.5) % Eosinophils % 0.9 (0.7-5.8) % Basophils % 0.5 (0.1-1.2) % Absolute Granulocytes 8.82 H (1.56-6.13) x10^3/uL Basophils # 0.06 (0.01-0.08) x10^3/uL Sodium 138 (135-145) mmol/L Potassium 4.4 (3.5-5.1) mmol/L Chloride 101 (98-107) mmol/L Carbon Dioxide 24 (22-30) mmol/L Anion Gap 16.6 H (5-15) MEQ/L BUN 11 (7-17) mg/dL Creatinine 0.61 (0.52-1.04) mg/dL Estimated GFR 94.3 ML/MIN Glucose 135 H (74-106) mg/dL Calcium 10.5 H (8.4-10.2) mg/dL Total Bilirubin 1.00 (0.2-1.3) mg/dL AST 40 H (14-36) U/L ALT 29 (0-35) U/L Alkaline Phosphatase 107 (38-126) U/L Serum Total Protein 8.7 H (6.3-8.2) g/dL Albumin 5.1 H (3.5-5.0) g/dL Amylase 77 (30-110) U/L Lipase 277 (23-300) U/L Urine Color Yellow (Yellow) Urine Appearance Clear (Clear) Urine pH 7.5 (4.6-8.0) Ur Specific [place] 1.015 (1.005-1.030) Urine Protein Trace A (Negative) Urine Glucose (UA) Negative (Negative) mg/dL Urine Ketones 40 A (Negative) Urine Blood Negative (Negative) Urine Nitrite Negative (Negative) Urine Bilirubin Negative (Negative) Urine Urobilinogen 0.2 (0.2) mg/dL Ur Leukocyte Esterase Trace A (Negative) U Hyaline Cast (Auto) NONE SEEN (0-2) /LPF Urine Microscopic RBC 0-2 (0-5) /HPF Urine Microscopic WBC 6-10 A (0-5) /HPF Ur Epithelial Cells Rare (None Seen) /HPF Urine Bacteria None Seen (None Seen) /HPF Urine Culture Reflexed NO (NO) - Progress Progress: improved, pain not gone completely, re-examined Progress Note: 08/17/25 09:06 My medical decision making and the assignment of moderate complexity to this patient's medical issue today is based on review of the patient's past medical history, reviewed patient's medication list, reviewed the patient drug allergy list, history of present illness and physical findings on examination. The workup in this patient includes placement of an intravenous line, infusion of Normal Saline solution, infusion of Protonix, infusion of Compazine, infusion of Dilaudid, CBC, CMP, urinalysis, amylase, lipase. Differential diagnosis includes but is not limited to perforated viscus, pancreatitis, acute appendicitis, cholecystitis/cholelithiasis, bowel obstruction, gastritis, ulcer disease, diverticulitis 08/17/25 11:13 I interpreted the patient's laboratory data results. Based on laboratory data results, the patient does have evidence of mild dehydration based on the urinalysis study with ketones present. Patient's leukocytosis is mild and this was likely secondary to the patient vomiting episodes. The CT scan of the abdomen pelvis without contrast was interpreted by the radiologist and I reviewed the impression. The impression states: Small hiatal hernia. The stomach, small bowel loops appear nonobstructed. There is a normal appendix. There is mild scattered aortic calcifications without abdominal aortic aneurysm. There is L4-L5 degenerative disc disease. There is no free air or free fluid present. The remainder of the study is unremarkable for this noncontrast exam. Counseled pt/family regarding: lab results, diagnosis, rad results Medical Desision Making - Independent Historian Additional History obtained from: Relative/friend - Diagnostic Testing Diagnostic test were ordered, analyzed, and reviewed by me: Yes Radiological Interpretation: Reviewed by me, Teleradiologist Report - Risk of complications Low Risk: Low risk of morbidity from additional dx testing or treatment - Departure Departure Disposition: Home Clinical Impression: Epigastric abdominal pain, Hypertension Condition: Stable Critical Care Time: No Referrals: PAOLA ORO MD [Primary Care Provider, INTERNAL MEDICINE] - Follow up/PCP as directed Additional Instructions: Drink plenty of clear liquids. Advance your diet slowly. Avoid fatty greasy spicy foods. Call your primary care provider today, 08/17/2025, to make arrangements for follow-up appointment to be seen in the next 3 to 5 days and to discuss your abdominal pain and hypertension (high blood pressure) issues. Keep daily log (morning noon and night) of your blood pressure readings over the weekend and provide them to your primary care provider's office when you call them.
[2025-08-17 08:49] LABS: BASOPHIL % 0.5 % (0.1-1.2); Basophil (Absolute #) 0.06 x10^3/uL (0.01-0.08); Eosinophil (Absolute #) 0.10 x10^3/uL (0.04-0.36); Hematocrit 45.9 % (34.1-44.9); Hemoglobin 16.2 g/dL (11.2-15.7); IMMATURE GRAN # 0.04 x10^3u/L (0.001-0.031); IMMATURE GRAN % 0.3 % (0.001-0.429); Lymphocyte (Absolute #) 1.60 x10^3/uL (1.18-3.74); Mean Corpuscular Hemoglobin 30.3 pg (25.6-32.2); Mean Corpuscular Hgb Concent. 35.3 g/dL (32.2-35.5); Monocyte (Absolute #) 0.86 x10^3/uL (0.24-0.86); NUCLEATED RBC # 0.00 x10^3u/L (0.00-0.012); NUCLEATED RBC % 0.0 % (0.00-0.2); Platelet Count 270 x10^3/uL (182-369); Red Blood Count 5.35 x10^6/uL (3.93-5.22); White Blood Count 11.5 x10^3/uL (3.98-10.04)
[2025-08-17] MEDS ORDERED: Compazine 10 MG/2 ML ONE (08:50)
[2025-08-17] MEDS ORDERED: PROTONIX 40 MG IV IV ONE (08:50)
[2025-08-17] MEDS ORDERED: Hydromorphone 1 mg/ml Injection ONE ×2 (08:50→11:35)
[2025-08-17] MEDS: Hydromorphone 1 mg/ml Injection IV ONE ×2 (08:58→11:48)
[2025-08-17] MEDS: PROTONIX 40 MG IV IV ONE (09:00)
[2025-08-17 09:02] LABS: Calcium 10.5 mg/dL (8.4-10.2); Carbon Dioxide 24.0 mmol/L (22-30); Creatinine 1 0.61 mg/dL (0.52-1.04); EST GLOMERULAR FILTRATION RATE 94.3 ML/MIN; Glucose 135.0 mg/dL (74-106); Potassium 4.4 mmol/L (3.5-5.1); SGOT/AST 40.0 U/L (14-36); SGPT/ALT 29.0 U/L (0-35); Total Protein 8.7 g/dL (6.3-8.2)
[2025-08-17] MEDS: Compazine 10 MG/2 ML IV ONE (09:02)
[2025-08-17] MEDS ORDERED: TRANDATE 20 MG/4 ML SYRINGE IV ONE ×2 (10:46→11:35)
[2025-08-17] MEDS: TRANDATE 20 MG/4 ML SYRINGE IV ONE ×2 (10:50→11:48)
[2025-08-17 10:59] LABS: Glucose, Urine Negative (Negative); Protein,Urine Dip Trace (Negative); RBC 0-2 /HPF (0-5)
--- NOTE | 2025-08-17 11:05 | XRAY ---
Indication: Pain. Multiple contiguous axial images obtained through the abdomen and pelvis without contrast. Comparison: April 23, 2024 Lung bases demonstrates minimal dependent atelectasis. No infiltrate or effusion. Heart not enlarged. Stable small hiatal hernia. A few radiopacities in stomach and small bowel loops for presumed ingested medication, bismuth, or barium. Stomach and bowel loops appear nonobstructed with normal appendix. Stable 2.4 cm right mid renal cyst. No free fluid/air. Remaining liver, gallbladder, pancreas, spleen, adrenal glands, kidneys, ureters, bladder, and uterus are unremarkable for noncontrast exam. Again mild scattered aortic calcifications without AAA. Osseous structures intact again with mild L4-L5 degenerative disc disease. Impression: 1. Again small hiatal hernia, small right renal cyst, arteriosclerotic disease, and L4-L5 degenerative disc disease. 2. Remaining CT abdomen/pelvis without contrast exam continues to be negative.
[2025-08-17] MEDS ORDERED: Zofran 4 MG/2 ML VIAL ONE (11:48)
[2025-08-17] MEDS: Zofran 4 MG/2 ML VIAL IV ONE (11:50)
--- NOTE | 2025-08-17 13:44 | PCM.HP ---
History of Present Illness - Chief Complaint Chief Complaint: Abdominal pain Date: 08/17/25 History of Present Illness: is a A 75-year-old female with a past medical history significant for migraines, hypertension, hyperlipidemia, COPD, sleep apnea, GERD with gastritis, and trigeminal neuralgia presented to the emergency department with complaints of sharp epigastric pain that began midday yesterday and worsened this morning. She described the pain as constant and achy. According to her , the pain began after a coughing episode, followed by nausea and vomiting. She reported only being able to take her prescribed antibiotic for a recent diagnosis of bronchitis and has not taken her other home medications, resulting in elevated blood pressure. Review of records noted prior ED visits for GERD with gastritis. She attempted Tums without relief. In the ED, she received Dilaudid, Zofran, Compazine, and Protonix, but none improved her symptoms. On examination, she localized pain to the epigastric region with increased right upper quadrant tenderness on palpation. An ultrasound of the gallbladder was ordered, and she was made NPO. A GI cocktail was prescribed for pain inpatient. A CT scan of the abdomen and pelvis showed no acute abnormalities. Her last bowel movement this morning was normal, and her last episode of vomiting occurred earlier today. At present, she denies any further symptoms. - Review of Systems Constitutional: No Fever, No Chills Eyes: No Symptoms Ears, Nose, & Throat: No Symptoms Respiratory: No Cough, No Short Of Breath Cardiac: No Chest Pain, No Edema, No Syncope Abdominal/Gastrointestinal: Abdominal Pain, Nausea, Vomiting, No Diarrhea Genitourinary Symptoms: No Dysuria Musculoskeletal: No Back Pain, No Neck Pain Skin: No Rash Neurological: No Dizziness, No Focal Weakness, No Sensory Changes Psychological: No Symptoms Endocrine: No Symptoms Hematologic/Lymphatic: No Symptoms Immunological/Allergic: No Symptoms Medications & Allergies Home Medications: Home Medication List Albuterol Common Canister [Ventolin Common Canister] 1 puff IH Q4HPRN PRN 08/17/25 [History Confirmed 08/17/25] Benzonatate 100 mg PO TID PRN 08/17/25 [History Confirmed 08/17/25] Cefdinir 300 mg [Omnicef 300 mg] 300 mg PO Q12H 08/17/25 [History Confirmed 08/17/25] Chlorthalidone [Hemiclor] 12.5 mg PO QAM 08/17/25 [History Confirmed 08/17/25] Duloxetine HCl 30 mg PO QAM 08/17/25 [History Confirmed 08/17/25] Ezetimibe 10 mg [Zetia 10 MG] 10 mg PO HS 08/17/25 [History Confirmed 08/17/25] Famotidine 20 mg [Pepcid 20 MG] 20 mg PO DAILY 08/17/25 [History Confirmed 08/17/25] Polyethylene Glycol 3350 [Miralax] 17 gm PO HS 08/17/25 [History Confirmed 08/17/25] Allergies/Adverse Reactions: Allergies Allergy/AdvReac Type Severity Reaction Status Date / Time No Known Drug Allergies Allergy Verified 08/17/25 08:41 - Past Medical History Past Medical History: Yes Neurological History: Migraines, Other ENT History: No Pertinent History Cardiac History: High Cholesterol, Hypertension Respiratory History: COPD, Pneumonia, Sleep Apnea Endocrine Medical History: No Pertinent History Musculoskelatal History: No Pertinent History GI Medical History: GERD History: No Pertinent History Pyscho-Social History: No Pertinent History Reproductive Disorders: No Pertinent History Comment: trigeminal neuralgia - Past Surgical History Past Surgical History: Yes Neuro Surgical History: No Pertinent History Cardiac History: No Pertinent History Respiratory Surgery: No Pertinent History GI Surgical History: No Pertinent History Genitourinary Surgical Hx: No Pertinent History Musculskeletal Surgical Hx: Other Female Surgical History: No Pertinent History Other Surgical History: bone spur removed from posterior neck Significant Family History: no pertinent family hx - Social History Smoking Status: Former smoker How long have you smoked: 20 years Exposure to second hand smoke: No Alcohol: None Drug Use: none - Social Determinants of Health Will the patient participate in the screening: Declined to provide Do you worry about a steady place to live?: No Do you have any problems with any of the following?: No known problems In the past 12 months,have you had to go without utilities?: No Have you or anyone in your house had to go without enough: No Transportation Issues: No Has anyone in your support network made you feel unsafe?: No - Physical Exam Vital Signs: Vital Signs - 24 hr Temp Pulse Resp BP BP Pulse Ox 08/17/25 12:46 98.9 F 73 16 179/101 93 L 08/17/25 12:00 75 18 168/93 91 L 08/17/25 11:50 74 22 194/107 95 08/17/25 11:30 77 17 187/96 97 08/17/25 11:17 73 22 180/104 96 08/17/25 11:15 85 19 181/104 95 08/17/25 11:00 74 17 181/94 94 L 08/17/25 10:52 75 16 182/101 93 L 08/17/25 10:35 87 20 193/106 95 08/17/25 10:34 80 18 209/108 96 08/17/25 10:00 89 18 180/99 96 08/17/25 09:42 85 16 180/101 92 L 08/17/25 09:30 85 19 169/97 94 L 08/17/25 09:00 80 17 206/120 92 L 08/17/25 08:30 75 23 203/121 99 08/17/25 08:29 98.5 F 86 20 203/121 99 General Appearance: no apparent distress, alert Neurologic Exam: alert, oriented x 3, cooperative, normal mood/affect, nml cerebellar function, nml station & gait, sensation nml, No motor deficits Eye Exam: PERRL/EOMI, eyes nml inspection Ears, Nose, Throat Exam: normal ENT inspection, TMs normal, pharynx normal, moist mucous membranes Neck Exam: normal inspection, non-tender, supple, full range of motion Respiratory Exam: normal breath sounds, lungs clear, No respiratory distress Cardiovascular Exam: regular rate/rhythm, normal heart sounds, normal peripheral pulses Gastrointestinal/Abdomen Exam: soft, normal bowel sounds, tenderness (RUQ and epigastric with palpation), No mass Back Exam: normal inspection, normal range of motion, No CVA tenderness, No vertebral tenderness Extremity Exam: normal inspection, normal range of motion, pelvis stable Skin Exam: normal color, warm, dry, No rash Lymphatic Exam: No adenopathy Results - Labs Lab/Micro Results: Lab Results-Last 24 Hours 08/17/25 08/17/25 08/17/25 Range/Units 08:48 08:48 10:37 WBC 11.5 H (3.98-10.04) x10^3/uL RBC 5.35 H (3.93-5.22) x10^6/uL Hgb 16.2 H (11.2-15.7) g/dL Hct 45.9 H (34.1-44.9) % MCV 85.8 (79.4-94.8) fL MCH 30.3 (25.6-32.2) pg MCHC 35.3 (32.2-35.5) g/dL RDW 11.7 (11.7-14.4) % Plt Count 270 (182-369) x10^3/uL MPV 10.5 (9.4-12.3) fL Gran % 76.9 H (34.0-71.1) % Immature Gran % (Auto) 0.3 (0.001-0.429) % Nucleat RBC Rel Count 0.0 (0.00-0.2) % Eos # (Auto) 0.10 (0.04-0.36) x10^3/uL Immature Gran # (Auto) 0.04 H (0.001-0.031) x10^3u/L Absolute Lymphs (auto) 1.60 (1.18-3.74) x10^3/uL Absolute Monos (auto) 0.86 (0.24-0.86) x10^3/uL Absolute Nucleated RBC 0.00 (0.00-0.012) x10^3u/L Lymphocytes % 13.9 L (19.3-51.7) % Monocytes % 7.5 (4.7-12.5) % Eosinophils % 0.9 (0.7-5.8) % Basophils % 0.5 (0.1-1.2) % Absolute Granulocytes 8.82 H (1.56-6.13) x10^3/uL Basophils # 0.06 (0.01-0.08) x10^3/uL Sodium 138 (135-145) mmol/L Potassium 4.4 (3.5-5.1) mmol/L Chloride 101 (98-107) mmol/L Carbon Dioxide 24 (22-30) mmol/L Anion Gap 16.6 H (5-15) MEQ/L BUN 11 (7-17) mg/dL Creatinine 0.61 (0.52-1.04) mg/dL Estimated GFR 94.3 ML/MIN Glucose 135 H (74-106) mg/dL Calcium 10.5 H (8.4-10.2) mg/dL Total Bilirubin 1.00 (0.2-1.3) mg/dL AST 40 H (14-36) U/L ALT 29 (0-35) U/L Alkaline Phosphatase 107 (38-126) U/L Serum Total Protein 8.7 H (6.3-8.2) g/dL Albumin 5.1 H (3.5-5.0) g/dL Amylase 77 (30-110) U/L Lipase 277 (23-300) U/L Urine Color Yellow (Yellow) Urine Appearance Clear (Clear) Urine pH 7.5 (4.6-8.0) Ur Specific [place] 1.015 (1.005-1.030) Urine Protein Trace A (Negative) Urine Glucose (UA) Negative (Negative) mg/dL Urine Ketones 40 A (Negative) Urine Blood Negative (Negative) Urine Nitrite Negative (Negative) Urine Bilirubin Negative (Negative) Urine Urobilinogen 0.2 (0.2) mg/dL Ur Leukocyte Esterase Trace A (Negative) U Hyaline Cast (Auto) NONE SEEN (0-2) /LPF Urine Microscopic RBC 0-2 (0-5) /HPF Urine Microscopic WBC 6-10 A (0-5) /HPF Ur Epithelial Cells Rare (None Seen) /HPF Urine Bacteria None Seen (None Seen) /HPF Urine Culture Reflexed NO (NO) - Radiology Impressions Radiology Exams & Impressions: Radiology Procedures Category Date Time Status ABDOMEN AND PELVIS W/0 CONTRAS [CT] Stat Exams 08/17/25 08:45 Completed Assessment/Plan (1) Epigastric abdominal pain Current Visit: Yes Status: Acute Assessment & Plan: - IVF - CBC, CMP reviewed - GI cocktail - CT abd/pelvis negative for acute concern - US gallbladder- NPO for now - Zofran, Compazine PRN Code(s): R10.13 - EPIGASTRIC PAIN (2) GERD (gastroesophageal reflux disease) Current Visit: Yes Status: Acute Assessment & Plan: - GI cocktail - Protonix IV gave in ER- Continue PO IP - Hx of GERD with gastritis per old records. - PRN antiemetics. Code(s): K21.9 - GASTRO-ESOPHAGEAL REFLUX DISEASE WITHOUT ESOPHAGITIS (3) Hypertension Current Visit: Yes Status: Chronic Assessment & Plan: - BP elevated as she has not taken Bp meds in 2 days - Restart BP med - PRN IV med Code(s): I10 - ESSENTIAL (PRIMARY) HYPERTENSION (4) Bronchitis Current Visit: Yes Status: Acute Assessment & Plan: - CXR pending - Recent dx OP of bronchitis - Continue PO antibiotic, albuterol PRN - RA 93% - Tessalon VTE: Lovenox PPI: Protonix Next of KIN: Spouse- Larry D/C plan: 1-2 days Code status: Full Plan of care time > 40 minutes Code(s): J40 - BRONCHITIS, NOT SPECIFIED ACUTE OR CHRONIC Telemedicine Encounter - Telemedicine Encounter Telemedicine Encounter: "The entirety of this encounter was performed via Telemedicine" This visit was performed using real-time audio and video connection between my location and thepatients locationwith the assistance of a surrogateat the patients location. Written or verbal consent was obtained from the patient/guardian to perform this visit usingsynchronoustelemedicine technology. Any patient questions regarding the telemedicine interaction were answered.
[2025-08-17] MEDS ORDERED: CHLORTHALIDONE 12.5 MG PO SCH (14:01)
[2025-08-17] MEDS ORDERED: VENTOLIN COMMON CANISTER IH PRN (14:01)
[2025-08-17] MEDS ORDERED: Tessalon Perles 100 MG PO PRN (14:15)
[2025-08-17] MEDS ORDERED: MEDICATION INTERVENTION MC SCH (14:45)
--- NOTE | 2025-08-17 14:56 | XRAY ---
Indication: Abdominal pain. Two-dimensional gallbladder sonogram performed. Comparison: None Visualized gallbladder, liver, and pancreas are sonographically normal Common bile duct measures 2.3 mm. No intrahepatic biliary distention or free fluid. Right kidney measures 11.0 x 4.7 x 5.1 cm. Impression: Negative gallbladder sonogram.
[2025-08-17] MEDS: Compazine 10 MG/2 ML IV PRN (15:18)
[2025-08-17] MEDS: APRESOLINE 20 MG/ML INJ IV PRN (15:45)
[2025-08-17] MEDS: ENOXAPARIN SODIUM SQ SCH (15:46)
[2025-08-17] MEDS: TYLENOL 325 MG PO PRN (16:38)
[2025-08-17] MEDS: OMNICEF 300 MG PO SCH (16:38)
[2025-08-17] MEDS: GI COCKTAIL 45 ML (Maalox/Lidocaine) PO ONE (16:39)
[2025-08-17] MEDS: BENADRYL 50 MG/ML IV ONE (18:23)
[2025-08-17] MEDS: ULTRAM 50 MG PO PRN (20:19)
[2025-08-17] MEDS: Miralax Powder 17GM PACKET PO SCH (20:19)
[2025-08-17] MEDS: Zetia 10 MG PO SCH (20:20)
--- NOTE | 2025-08-17 21:56 | XRAY ---
Indication: Short of breath. Cough. Comparison: November 25, 2023 Portable chest again hyperinflated and clear with incidental tiny right base calcified granuloma. Heart not enlarged. Bony thorax intact again with osteopenia and mild degenerative changes. Impression: Again nonacute hyperinflated chest with chronic features.
[2025-08-18] MEDS: Zofran 4 MG/2 ML VIAL IV PRN (03:33)
[2025-08-18 04:57] LABS: BASOPHIL % 0.3 % (0.1-1.2); Basophil (Absolute #) 0.04 x10^3/uL (0.01-0.08); Eosinophil (Absolute #) 0 x10^3/uL (0.04-0.36); Hematocrit 43.7 % (34.1-44.9); Hemoglobin 14.9 g/dL (11.2-15.7); IMMATURE GRAN # 0.07 x10^3u/L (0.001-0.031); IMMATURE GRAN % 0.5 % (0.001-0.429); Lymphocyte (Absolute #) 0.90 x10^3/uL (1.18-3.74); Mean Corpuscular Hemoglobin 30.0 pg (25.6-32.2); Mean Corpuscular Hgb Concent. 34.1 g/dL (32.2-35.5); Monocyte (Absolute #) 1.50 x10^3/uL (0.24-0.86); NUCLEATED RBC # 0.00 x10^3u/L (0.00-0.012); NUCLEATED RBC % 0.0 % (0.00-0.2); Platelet Count 247 x10^3/uL (182-369); Red Blood Count 4.96 x10^6/uL (3.93-5.22); White Blood Count 15.2 x10^3/uL (3.98-10.04)
[2025-08-18 05:31] LABS: Calcium 9.7 mg/dL (8.4-10.2); Carbon Dioxide 24.0 mmol/L (22-30); Creatinine 1 0.61 mg/dL (0.52-1.04); EST GLOMERULAR FILTRATION RATE 94.3 ML/MIN; Glucose 131.0 mg/dL (74-106); NT PRO BNPII 870.0 pg/mL (<300); Potassium 4.0 mmol/L (3.5-5.1); SGOT/AST 33.0 U/L (14-36); SGPT/ALT 21.0 U/L (0-35); Total Protein 7.6 g/dL (6.3-8.2)
[2025-08-18 07:40] VITALS: RESP 17; O2SAT 94
--- NOTE | 2025-08-18 09:16 | XRAY ---
CLINICAL HISTORY: H/A COMPARISON: The prior study dated 06/15/2022, was used for comparison. TECHNIQUE: An axial non-contrast CT scan of the brain was performed from the skull base to the high parietal region. One of the following dose reduction techniques was utilized for this exam: Automated exposure control, adjustment of the mA and/or kV according to patient size, and use of iterative reconstruction. FINDINGS: Brain Parenchyma: Mild age-related cerebral involutional changes are noted. Multiple patchy deep periventricular foci of hypodensity with no mass effect or edema are noted. A right deep frontal periventricular patchy hypodense focus with no mass effect is related to an old ischemic insult. Ventricular System: The ventricles are prominent. There is no evidence of hydrocephalus or ventricular enlargement. Subarachnoid Spaces: The sulci and cisterns are prominent. There is no evidence of subarachnoid hemorrhage or extra-axial fluid collections. Cerebellum and Brainstem: There are no masses, lesions, or areas of abnormal density. Orbits: The globes, optic nerves, and extraocular muscles have a normal appearance. There is no evidence of orbital masses or abnormal density. Sinuses: The paranasal sinuses are clear. There is no evidence of sinusitis or mucosal thickening. Mastoid Air Cells: The mastoid air cells are clear. There is no evidence of mastoiditis. Skull: The skull morphology is normal. IMPRESSION: 1. Mild age-related cerebral involutional changes are noted. [Stable] 2. Multiple patchy deep periventricular foci of hypodensity are related to small vessel disease. [Slightly progressed] 3. 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 [New finding compared to the 06/15/2022 study] 4. There is no recent ischemic or hemorrhagic insult based on the non-contrast study. 5. An MRI with a diffusion sequence is advised if clinically warranted. Electronically Signed by: Yao Rod MD. (08/18/2025 09:14:58 EDT)
[2025-08-18] MEDS: Imitrex 6 MG/0.5 ML SQ STA (09:33)
[2025-08-18] MEDS: Cymbalta 30 MG Capsule PO SCH (09:34)
[2025-08-18] MEDS: Protonix 20MG Tablet PO SCH (09:34)
[2025-08-18] MEDS: CHLORTHALIDONE PO SCH (09:35)
[2025-08-18] MEDS ORDERED: PROTONIX 40 MG IV IV SCH (10:00)
--- NOTE | 2025-08-18 10:32 | PCM.DS ---
Discharge Summary Date of Admission: 08/17/25 12:40 Date of Discharge: 08/18/25 Admitting Physician: LAKSHMI MCKEON MD Primary Care Provider: KD Bauman Allergies Allergies No Known Drug Allergies Allergy (Verified 08/17/25 08:41) Hospital Summary - Hospital Course Hospital Course: 08/17 is a A 75-year-old female with a past medical history significant for migraines, hypertension, hyperlipidemia, COPD, sleep apnea, GERD with gastritis, and trigeminal neuralgia presented to the emergency department with complaints of sharp epigastric pain that began midday yesterday and worsened this morning. She described the pain as constant and achy. According to her , the pain began after a coughing episode, followed by nausea and vomiting. She reported only being able to take her prescribed antibiotic for a recent diagnosis of bronchitis and has not taken her other home medications, resulting in elevated blood pressure. Review of records noted prior ED visits for GERD with gastritis. She attempted Tums without relief. In the ED, she received Dilaudid, Zofran, Compazine, and Protonix, but none improved her symptoms. On examination, she localized pain to the epigastric region with increased right upper quadrant tenderness on palpation. An ultrasound of the gallbladder was ordered, and she was made NPO. A GI cocktail was prescribed for pain inpatient. A CT scan of the abdomen and pelvis showed no acute abnormalities. Her last bowel movement this morning was normal, and her last episode of vomiting occurred earlier today. At present, she denies any further symptoms. 08/18 The patient is resting in bed and continues to report headache with associated photophobia. She states that she has a history of chronic severe daily headaches for which she takes Excedrin Migraine daily, likely contributing to her prior abdominal pain from gastritis. Today, she reports resolution of abdominal pain. She received Benadryl yesterday evening for her headache without relief. A CT of the head was obtained and reviewed. The patient does not currently use prescription migraine medications, and a neurology follow-up appointment in [place] has been scheduled to review CT results and address her chronic headaches. Based on her frequency and severity of headaches, she meets diagnostic criteria for migraines. She denies nausea or vomiting today. Hypertension remains present; her home blood pressure medication was restarted, though nursing notes indicate it was administered late yesterday evening. Consideration will be given to adding an additional antihypertensive agent if her blood pressure does not improve on her home regimen. Gallbladder ultrasound and chest X-ray were negative. She denies respiratory symptoms, is tolerating a clear liquid diet, and diet will be advanced as tolerated. Discharge will be considered today if her symptoms continue to improve. Pt to d/c with PPI for gastritis and imitrex for migraines. Then start ASA EC 81 mg daily after 2 weeks after BID PPI. - Vitals & Intake/Output Vital Signs: Vital Signs Temperature 98.3 F 08/18/25 07:39 Pulse Rate 101 H 08/18/25 07:39 Respiratory Rate 17 08/18/25 07:39 Blood Pressure 160/77 08/18/25 07:39 O2 Sat by Pulse Oximetry 94 L 08/18/25 07:39 Intake & Output: Intake & Output 08/15/25 08/16/25 08/17/25 08/18/25 11:59 11:59 11:59 11:59 Intake Total 421 Balance 421 Weight 65.5 kg 66.8 kg - Lab Result Diagrams: 08/18/25 04:20 08/18/25 04:20 Lab Results-Last 24 Hrs: Lab Results-Last 24 Hours 08/17/25 08/18/25 08/18/25 Range/Units 10:37 04:20 04:20 WBC 15.2 H (3.98-10.04) x10^3/uL RBC 4.96 (3.93-5.22) x10^6/uL Hgb 14.9 (11.2-15.7) g/dL Hct 43.7 (34.1-44.9) % MCV 88.1 (79.4-94.8) fL MCH 30.0 (25.6-32.2) pg MCHC 34.1 (32.2-35.5) g/dL RDW 12.1 (11.7-14.4) % Plt Count 247 (182-369) x10^3/uL MPV 10.5 (9.4-12.3) fL Gran % 83.4 H (34.0-71.1) % Immature Gran % (Auto) 0.5 H (0.001-0.429) % Nucleat RBC Rel Count 0.0 (0.00-0.2) % Eos # (Auto) 0 L (0.04-0.36) x10^3/uL Immature Gran # (Auto) 0.07 H (0.001-0.031) x10^3u/L Absolute Lymphs (auto) 0.90 L (1.18-3.74) x10^3/uL Absolute Monos (auto) 1.50 H (0.24-0.86) x10^3/uL Absolute Nucleated RBC 0.00 (0.00-0.012) x10^3u/L Lymphocytes % 5.9 L (19.3-51.7) % Monocytes % 9.9 (4.7-12.5) % Eosinophils % 0.0 L (0.7-5.8) % Basophils % 0.3 (0.1-1.2) % Absolute Granulocytes 12.70 H (1.56-6.13) x10^3/uL Basophils # 0.04 (0.01-0.08) x10^3/uL Sodium 132 L (135-145) mmol/L Potassium 4.0 (3.5-5.1) mmol/L Chloride 98 (98-107) mmol/L Carbon Dioxide 24 (22-30) mmol/L Anion Gap 13.9 (5-15) MEQ/L BUN 10 (7-17) mg/dL Creatinine 0.61 (0.52-1.04) mg/dL Estimated GFR 94.3 ML/MIN Glucose 131 H (74-106) mg/dL Hemoglobin A1c (4.5-6.0) % Lactic Acid (0.4-2.0) Calcium 9.7 (8.4-10.2) mg/dL Total Bilirubin 0.90 (0.2-1.3) mg/dL AST 33 (14-36) U/L ALT 21 (0-35) U/L Alkaline Phosphatase 81 (38-126) U/L NT-Pro-B Natriuret Pep 870 (<300) pg/mL Serum Total Protein 7.6 (6.3-8.2) g/dL Albumin 4.5 (3.5-5.0) g/dL Urine Color Yellow (Yellow) Urine Appearance Clear (Clear) Urine pH 7.5 (4.6-8.0) Ur Specific [place] 1.015 (1.005-1.030) Urine Protein Trace A (Negative) Urine Glucose (UA) Negative (Negative) mg/dL Urine Ketones 40 A (Negative) Urine Blood Negative (Negative) Urine Nitrite Negative (Negative) Urine Bilirubin Negative (Negative) Urine Urobilinogen 0.2 (0.2) mg/dL Ur Leukocyte Esterase Trace A (Negative) U Hyaline Cast (Auto) NONE SEEN (0-2) /LPF Urine Microscopic RBC 0-2 (0-5) /HPF Urine Microscopic WBC 6-10 A (0-5) /HPF Ur Epithelial Cells Rare (None Seen) /HPF Urine Bacteria None Seen (None Seen) /HPF Urine Culture Reflexed NO (NO) 08/18/25 08/18/25 Range/Units 04:59 09:12 WBC (3.98-10.04) x10^3/uL RBC (3.93-5.22) x10^6/uL Hgb (11.2-15.7) g/dL Hct (34.1-44.9) % MCV (79.4-94.8) fL MCH (25.6-32.2) pg MCHC (32.2-35.5) g/dL RDW (11.7-14.4) % Plt Count (182-369) x10^3/uL MPV (9.4-12.3) fL Gran % (34.0-71.1) % Immature Gran % (Auto) (0.001-0.429) % Nucleat RBC Rel Count (0.00-0.2) % Eos # (Auto) (0.04-0.36) x10^3/uL Immature Gran # (Auto) (0.001-0.031) x10^3u/L Absolute Lymphs (auto) (1.18-3.74) x10^3/uL Absolute Monos (auto) (0.24-0.86) x10^3/uL Absolute Nucleated RBC (0.00-0.012) x10^3u/L Lymphocytes % (19.3-51.7) % Monocytes % (4.7-12.5) % Eosinophils % (0.7-5.8) % Basophils % (0.1-1.2) % Absolute Granulocytes (1.56-6.13) x10^3/uL Basophils # (0.01-0.08) x10^3/uL Sodium (135-145) mmol/L Potassium (3.5-5.1) mmol/L Chloride (98-107) mmol/L Carbon Dioxide (22-30) mmol/L Anion Gap (5-15) MEQ/L BUN (7-17) mg/dL Creatinine (0.52-1.04) mg/dL Estimated GFR ML/MIN Glucose (74-106) mg/dL Hemoglobin A1c 5.31 (4.5-6.0) % Lactic Acid 1.2 (0.4-2.0) Calcium (8.4-10.2) mg/dL Total Bilirubin (0.2-1.3) mg/dL AST (14-36) U/L ALT (0-35) U/L Alkaline Phosphatase (38-126) U/L NT-Pro-B Natriuret Pep (<300) pg/mL Serum Total Protein (6.3-8.2) g/dL Albumin (3.5-5.0) g/dL Urine Color (Yellow) Urine Appearance (Clear) Urine pH (4.6-8.0) Ur Specific [place] (1.005-1.030) Urine Protein (Negative) Urine Glucose (UA) (Negative) mg/dL Urine Ketones (Negative) Urine Blood (Negative) Urine Nitrite (Negative) Urine Bilirubin (Negative) Urine Urobilinogen (0.2) mg/dL Ur Leukocyte Esterase (Negative) U Hyaline Cast (Auto) (0-2) /LPF Urine Microscopic RBC (0-5) /HPF Urine Microscopic WBC (0-5) /HPF Ur Epithelial Cells (None Seen) /HPF Urine Bacteria (None Seen) /HPF Urine Culture Reflexed (NO) - Radiology Exams Ordered Rad Exams-Entire Visit: Radiology Procedures Category Date Time Status ABDOMEN AND PELVIS W/0 CONTRAS [CT] Stat Exams 08/17/25 08:45 Completed CHEST 1 VIEW (PORTABLE) Routine Exams 08/17/25 14:13 Completed GALLBLADDER [US] Routine Exams 08/17/25 13:58 Completed HEAD WITHOUT CONTRAST [CT] Stat Exams 08/18/25 07:45 Completed - Procedures and Test Procedures and Tests throughout Hospitalization: Therapy Orders & Screens 08/18/25 07:00 Respiratory Therapy Assessment DAILY Comment: Diagnosis: Abdominal pain Discharge Exam General Appearance: no apparent distress, alert Neurologic Exam: alert, oriented x 3, cooperative, film coater II-XII nml as tested, normal mood/affect, nml cerebellar function, sensation nml, No motor deficits Eye Exam: PERRL, EOMI, eyes nml inspection Ears, Nose, Throat Exam: normal ENT inspection, pharynx normal, moist mucous membranes Neck Exam: normal inspection, non-tender, supple, full range of motion Respiratory Exam: normal breath sounds, lungs clear, No respiratory distress Cardiovascular Exam: regular rate/rhythm, normal heart sounds Gastrointestinal/Abdomen Exam: soft, No tenderness, No mass Pelvic Exam: deferred Rectal Exam: deferred Back Exam: normal inspection, normal range of motion, No CVA tenderness, No vertebral tenderness Extremity Exam: normal inspection, normal range of motion Skin Exam: normal color, warm, dry Final Diagnosis/Problem List - Final Discharge Diagnosis/Problem (1) Epigastric abdominal pain Current Visit: Yes Status: Acute Code(s): R10.13 - EPIGASTRIC PAIN (2) GERD (gastroesophageal reflux disease) Current Visit: Yes Status: Acute Code(s): K21.9 - GASTRO-ESOPHAGEAL REFLUX DISEASE WITHOUT ESOPHAGITIS (3) Hypertension Current Visit: Yes Status: Chronic Code(s): I10 - ESSENTIAL (PRIMARY) HYPERTENSION (4) Bronchitis Current Visit: Yes Status: Acute Assessment & Plan: (1) Epigastric abdominal pain Current Visit: Yes Status: Acute Assessment & Plan: - IVF - CBC, CMP reviewed - GI cocktail - CT abd/pelvis negative for acute concern - US gallbladder- negative - Zofran, Compazine PRN 08/18 - Likley 2:2 daily excedrin migraine use- advised cessation - Continue PPI BID OP - Pt advised at previous ER visit to start PPI and she has been taking Pepcid instead. - Consider OP EGD if sxs continue Code(s): R10.13 - EPIGASTRIC PAIN (2) GERD (gastroesophageal reflux disease) Current Visit: Yes Status: Acute Assessment & Plan: - GI cocktail- not helpful per pt - Protonix IV gave in ER- Continue PO IP BID protonix - Hx of GERD with gastritis per old records. - PRN antiemetics. Code(s): K21.9 - GASTRO-ESOPHAGEAL REFLUX DISEASE WITHOUT ESOPHAGITIS (3) Hypertension Current Visit: Yes Status: Chronic Assessment & Plan: - BP elevated as she has not taken Bp meds in 2 days - Restart BP med - PRN IV med - Consider adding Beta tia as HR also elevated Code(s): I10 - ESSENTIAL (PRIMARY) HYPERTENSION (4) Bronchitis Current Visit: Yes Status: Acute Assessment & Plan: - CXR negative - Recent dx OP of bronchitis - Continue PO antibiotic, albuterol PRN - RA 93% - Tessalon 08/18 - PO antibiotic stopped - Lung sounds clear - Tessalon stopped Code(s): J40 - BRONCHITIS, NOT SPECIFIED ACUTE OR CHRONIC (5) Migraine headache Current Visit: Yes Status: Acute Assessment & Plan: - Propanolol started on 80 BID - Neurology consult - F/U with neurology OP - CT head reviewed - Stop daily Excedrin migraine d/t gastritis sxs. Code(s): G43.909 - MIGRAINE, UNSP, NOT INTRACTABLE, WITHOUT STATUS MIGRAINOSUS (6) Hx of stroke without residual deficits Current Visit: Yes Status: Acute Assessment & Plan: - CT head: IMPRESSION: 1. Mild age-related cerebral involutional changes are noted. [Stable] 2. Multiple patchy deep periventricular foci of hypodensity are related to small vessel disease. [Slightly progressed] 3. 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 [New finding compared to the 06/15/2022 study] 4. There is no recent ischemic or hemorrhagic insult based on the non-contrast study. 5. An MRI with a diffusion sequence is advised if clinically warranted. - A1C 5.31 - Lipid panel - Hold ASA for now d/t gastritis - After 2 weeks of PPI for gastritis will start ASA EC. - Tele- neurology consult per pt request D/C plan of care time: > 40 minutes D/C meds: ASA EC, Propanolol - Discharge Discharge Date: 08/18/25 Disposition: Home, Self-Care Condition: Stable Prescriptions: New Propranolol HCl [Inderal ] 80 mg PO BID 30 Days #60 tablet Pantoprazole 20 mg [Protonix 20MG Tablet] 20 mg PO BID 10 Days #20 tablet Aspirin EC 81 mg [Ecotrin 81 mg] 81 mg PO DAILY 30 Days #30 tablet Continue Polyethylene Glycol 3350 [Miralax] 17 gm PO HS Duloxetine HCl 30 mg PO QAM Chlorthalidone [Hemiclor] 12.5 mg PO QAM Ezetimibe 10 mg [Zetia 10 MG] 10 mg PO HS Albuterol Common Canister [Ventolin Common Canister] 1 puff IH Q4HPRN PRN PRN Reason: Shortness Of Breath/Wheezing Discontinued Cefdinir 300 mg [Omnicef 300 mg] 300 mg PO Q12H Benzonatate 100 mg PO TID PRN Famotidine 20 mg [Pepcid 20 MG] 20 mg PO DAILY Instructions: Gastritis, Migraine in adults, Stroke - Discharge instructions, Gastritis - Discharge instructions Additional Instructions: Stop Excedrin migraine. Consider follow up for EGD if continued abdominal pain. Follow up with neurology and PCP. Follow up with: CARLOS CARLTON NP [Primary Care Provider, UNKNOWN] - 08/23/25 10:30 am Referral Note: NOE HANSEN [NON-STAFF PHY W/O PRIVILEGES, NEUROLOGY] - 11/14/25 9:00 am Referral Note: OFFICE IS LOCATED ON THE 5TH FLOOR, IN BUILDING [address], ON THE [facility].
[2025-08-18 11:38] LABS: Cholesterol 216.0 mg/dL (50-200); LDL, DIRECT 113.0 mg/dL (30-100); TRIGLYCERIDE 86.0 mg/dL (30-150)
[2025-08-18] MEDS: CHLORTHALIDONE PO ONE (16:16)
[2025-08-18 16:43] VITALS: TEMP 97.5
[2025-08-18] MEDS: Inderal PO SCH (17:20)
[2025-08-18 18:49] VITALS: BP 141/68; PULSE 65
[2025-08-18] MEDS ORDERED: Inderal PO SCH (22:00)
[2025-08-18] MEDS ORDERED: Protonix 20MG Tablet PO SCH (22:00)
== END 2025-08-18 19:33 | disposition home or self-care (01) ==
LOC: ED 08:20 → MED SURG 12:40
PROVIDERS: ADMIT Internal Medicine; ATTEND Internal Medicine
DX: R10.13 Epigastric pain (principal); K21.9 Gastro-esophageal reflux disease without esophagitis; I10 Essential (primary) hypertension; J40 Bronchitis, not specified as acute or chronic; G43.909 Migraine, unspecified, not intractable, without status migrainosus; E78.5 Hyperlipidemia, unspecified; Z86.73 Personal history of transient ischemic attack (TIA), and cerebral infarction without residual deficits; Z79.899 Other long term (current) drug therapy
CPT/HCPCS: 36415; 70450; 71045; 74176; 76705; 80053; 80061; 81001; 82150; 83036; 83605; 83690; 83721; 83880; 85025; 93268; 94760; 96361; 96374; 99285; G0378